=== PATIENT | male | born 1980 | race Caucasian/White ===

== ENCOUNTER 2020-12-31 07:52 | Observation (INO) ==
[2020-12-31] MEDS ORDERED: KETOROLAC TROMETHAMINE 15 MG/ML VIAL IV STA (08:18)
[2020-12-31] MEDS ORDERED: MoRPHine SULFATE 4 MG/ML 1 ML CARP\\VIAL IV STA ×2 (08:18→11:24)
[2020-12-31] MEDS ORDERED: ONDANSETRON INJ 2 MG/ML 2 ML VIAL IV STA (08:18)
--- NOTE | 2020-12-31 08:24 | Emergency Department Note ---
History of Present Illness General Chief complaint: Back Injury/Pain Stated complaint: PAIN IN BACK, HIP, KNEE Time Seen by Provider: 12/31/20 08:01 History of Present Illness Maximum Pain Intensity: 8 This is a 40-year-old male that presents to the emergency department via private vehicle with complaints of "pain in back, hip, knee". The patient states that for the past 6 months he has been experiencing pain from his "neck to toes". The patient denies any known trauma or injury. He notes negative work-up for RA/Lyme. He notes also some swelling and pain into his fingers. He also has some pain in the left mid back region. He does note that he had an MRI of the L-spine without contrast performed on 12/24. The patient denies any fevers, chills, nausea, vomiting, chest pain or shortness of breath. No lower extremity weakness, bowel or bladder incontinence, numbness or tingling in the genital region. Overall pain /10. Patient denies any headache. No vision changes. Home Medications Medication Instructions Recorded Confirmed Type gabapentin 300 mg capsule 300 mg PO QID cap 09/08/20 12/31/20 History ibuprofen 200 mg tablet (Advil) 1,000 mg PO BID PRN tab 09/08/20 12/31/20 History Allergies Allergy/AdvReac Type Severity Reaction Status Date / Time methadone AdvReac Intermediate PT STATES Verified 12/31/20 08:42 "IT MAKES ME VERY SICK" Past Med/Surg History Medical History Anemia Anxiety and depression Autoimmune thyroiditis Bipolar 1 disorder, depressed Chronic back pain Dyslexia Hearing loss Left Hyperthyroidism recent diagnosis; no treatment as of yet; upcoming appt 09/25 to address Low TSH level Osteoarthritis PTSD (post-traumatic stress disorder) Scoliosis Vitamin D deficiency Surgical History H/O bone graft LEFT HIP H/O eye surgery H/O oral surgery History of below knee amputation Left (r/t injury) History of colonoscopy Family History Mother Mental health disorder bipolar, border line schizophrenia, depression, anxiety Hypertension Grandmother (Maternal) Hypertension Grandfather (Maternal) Hypertension Other No family history of adverse response to anesthesia Denies family history of Ovarian cancer Prostate cancer Myocardial infarction Breast cancer Colorectal cancer Social History Smoking Status: Former smoker Tobacco Type: Smokeless Tobacco (Dip or Chew) Age Started Using Tobacco: 22; Second Hand Exposure: Yes (hx and at present); Hx Alcohol Use: Yes Alcohol type: beer Alcohol Intake Frequency: 2-4 x/Month Hx Substance Use: Yes Non-Prescribed Medications: Marijuana Last Used Substance Other:: yesterday Preferred Language: Occitan Communication Ability: Effective Visual Impairment: No Limitations Hearing Ability: Hard of Hearing 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 Beliefs That Will Affect Care: None marital status: Current Living Situation: Spouse current occupational status: employed How many Children do You have: 2 How many Children do You have Comment: 2 boys Feels Safe at Home: Yes Childhood Exposure to Second-Hand Smoke: Yes caffeine: Yes during the past year weight has: decreased > 10 lbs Dental Care, Regularly: No Physical Activity Frequency: Daily Seatbelt Use: always Sunscreen Use: Yes Assistive Devices: Prosthesis Review of Systems A total of 10 systems reviewed and were otherwise negative Physical Exam Vital Signs Vital Signs - 24 hr 12/31/20 07:57 12/31/20 08:36 12/31/20 09:30 Temperature 36.5 C Temperature Source Temporal Artery Scan Pulse Rate 91 H 85 Pulse Rate [Left Finger] 92 H Pulse Rate from SpO2 Sensor Pulse Rhythm Regular Regular Pulse Rhythm [Left Finger] Regular Pulse Strength Normal Pulse Strength [Left Finger] Normal Respiratory Rate 18 20 18 Respiratory Effort / Characteristics Non-Labored Spontaneous Non-Labored Spontaneous Respiratory Depth Normal Normal Respiratory Pattern Regular Regular Blood Pressure 121/80 Blood Pressure [Left Arm] 125/76 Blood Pressure Mean 93 Blood Pressure Mean [Left Arm] 92 Blood Pressure Position Sitting Blood Pressure Position [Left Arm] Sitting Pulse Oximetry 100 98 100 Oxygen Delivery Method Room Air Room Air Room Air Sepsis Recent Fever Within 48 Hours No Sepsis New/Unexplained Change in Mental Status No Sepsis Action Taken by Nursing No Action Required 12/31/20 11:08 12/31/20 11:30 12/31/20 12:00 Temperature Temperature Source Pulse Rate 79 83 80 Pulse Rate [Left Finger] Pulse Rate from SpO2 Sensor 79 79 79 Pulse Rhythm Pulse Rhythm [Left Finger] Pulse Strength Pulse Strength [Left Finger] Respiratory Rate 11 L 13 17 Respiratory Effort / Characteristics Respiratory Depth Respiratory Pattern Blood Pressure 120/85 107/70 105/72 Blood Pressure [Left Arm] Blood Pressure Mean 96 82 83 Blood Pressure Mean [Left Arm] Blood Pressure Position Blood Pressure Position [Left Arm] Pulse Oximetry 99 98 99 Oxygen Delivery Method Sepsis Recent Fever Within 48 Hours Sepsis New/Unexplained Change in Mental Status Sepsis Action Taken by Nursing 12/31/20 12:30 12/31/20 13:00 12/31/20 13:30 Temperature Temperature Source Pulse Rate 82 75 84 Pulse Rate [Left Finger] Pulse Rate from SpO2 Sensor 83 76 87 Pulse Rhythm Pulse Rhythm [Left Finger] Pulse Strength Pulse Strength [Left Finger] Respiratory Rate 18 16 16 Respiratory Effort / Characteristics Respiratory Depth Respiratory Pattern Blood Pressure 118/79 112/72 119/85 Blood Pressure [Left Arm] Blood Pressure Mean 92 85 96 Blood Pressure Mean [Left Arm] Blood Pressure Position Blood Pressure Position [Left Arm] Pulse Oximetry 99 96 98 Oxygen Delivery Method Sepsis Recent Fever Within 48 Hours Sepsis New/Unexplained Change in Mental Status Sepsis Action Taken by Nursing VITAL SIGNS - Vital signs and nursing notes were reviewed. Stable and afebrile. GENERAL -40-year-old male appearing his stated age who is in no acute distress. Communicates well with provider and answers questions appropriately. SKIN - Without rashes. No meningeal or petechial rash. Tattoos noted. HEAD - NC/AT. EYES - PERRL with EOMI bilaterally. Sclera anicteric. EARS - No deformities of external structures noted on gross examination bilaterally. No pain elicited with palpation of the tragus bilaterally. External auditory canals without discharge or otorrhea. Tympanic membranes pearly finn without retraction or bulging. No fluid or purulent material visualized behind the TM. Handle of malleus, umbo, cone of light, pars tensa/flaccid all easily visualized. NOSE - Midline and without cyanosis. No epistaxis or purulent drainage noted. Septum midline without deviation or septal hematoma noted. MOUTH/OROPHARYNX - Without perioral cyanosis. Buccal mucosa pink and moist and without leukoplakia. Tongue midline with equal elevation of palate bilaterally. No tonsillar hypertrophy, erythema, or exudates noted. Good dentition noted. NECK - Neck with FROM. No nuchal rigidity. LUNGS - Chest wall symmetric without accessory muscle use, intercostals retractions, or central cyanosis. Normal vesicular breath sounds CTA B/L. No wheezes, rales, or rhonchi appreciated. CARDIAC - RRR with S1/S2. No murmur, rubs, or gallops appreciated. ABDOMEN - Abdominal contour normal without pulsations or visible masses. BS normoactive all four quadrants. No tenderness, palpable masses, hepatosplenomegaly, or ascites noted. EXTREMITIES - No clubbing or peripheral cyanosis. No pretibial edema present. LLE prosthetic noted. Overall strength symmetric and within normal limits in the extremities. Biceps reflex within normal limits bilaterally. NEUROLOGIC - Cranial nerves II through XII grossly intact. PSYCH - A&Ox3 and cooperates fully with examiner. Pt is very pleasant and interacts well with examiner. Course Administered Medications Gabapentin (Gabapentin 300 Mg Cap) 300 mg PO QID [facility] Stop: 01/30/21 16:59 Last Admin: 12/31/20 16:07 Dose: 300 mg Documented by: [id number] Oxycodone HCl (Oxycodone Hcl Ir 5 Mg Tab (Immediate Release)) 5 mg PO Q4H PRN PRN Reason: Pain Stop: 01/14/21 15:11 Last Admin: 12/31/20 15:34 Dose: 5 mg Documented by: [id number] Prednisone (Prednisone 20 Mg Tab) 40 mg PO [facility] Stop: 01/30/21 15:05 Last Admin: 12/31/20 16:07 Dose: 40 mg Documented by: [id number] Vitamin D (Cholecalciferol 1,000 Units 25 Mcg Tab) 1,000 units PO [facility] Stop: 01/30/21 15:05 Last Admin: 12/31/20 16:07 Dose: 1,000 units Documented by: [id number] Discontinued Medications Gadobutrol (Gadobutrol 65ml Vial) 5.5 ml IV ONCE ONE Stop: 12/31/20 10:38 Last Admin: 12/31/20 10:37 Dose: 5.5 ml Documented by: [id number] Hydromorphone HCl (Hydromorphone Inj 0.5 Mg/0.5 Ml Syr) 0.5 mg IV NOW STA Stop: 12/31/20 12:10 Last Admin: 12/31/20 12:16 Dose: 0.5 mg Documented by: [id number] Ketorolac Tromethamine (Ketorolac Tromethamine 15 Mg/Ml Vial) 15 mg IV NOW STA Stop: 12/31/20 08:19 Last Admin: 12/31/20 08:34 Dose: 15 mg Documented by: [id number] Morphine Sulfate (Morphine Sulfate 4 Mg/Ml 1 Ml Carp\\Vial) 4 mg IV NOW STA Stop: 12/31/20 08:19 Last Admin: 12/31/20 08:35 Dose: 4 mg Documented by: [id number] Morphine Sulfate (Morphine Sulfate 4 Mg/Ml 1 Ml Carp\\Vial) 4 mg IV NOW STA Stop: 12/31/20 11:25 Last Admin: 12/31/20 11:31 Dose: 4 mg Documented by: [id number] Ondansetron HCl (Ondansetron Inj 2 Mg/Ml 2 Ml Vial) 4 mg IV NOW STA Stop: 12/31/20 08:19 Last Admin: 12/31/20 08:34 Dose: 4 mg Documented by: [id number] Medical Decision Making Laboratory Data Result diagrams: 12/31/20 08:27 12/31/20 08:27 Lab Results 12/31/20 12/31/20 12/31/20 Range/Units 08:27 08:27 08:27 WBC 9.80 (4.8-10.8) K/uL RBC 3.95 L (4.7-6.1) M/uL Hgb 10.2 L (14.0-18.0) g/dL Hct 32.2 L (42-52) % MCV 81.5 (80-100) fL MCH 25.8 (25-34) pg MCHC 31.7 L (32-36) g/dL RDW Std Deviation 44.6 (36.4-46.3) fL RDW Coeff of Salome 15.0 H (11.5-14.5) % Plt Count 550 H (130-400) K/uL MPV 8.2 (7.4-10.4) fL Immature Gran % (Auto) 0.2 % Neut % (Auto) 80.0 % Lymph % (Auto) 11.8 % Stearns % (Auto) 7.3 % Eos % (Auto) 0.6 % Baso % (Auto) 0.1 % Neut # (Auto) 7.83 H (1.4-6.5) K/uL Lymph # (Auto) 1.16 L (1.2-3.4) K/uL Stearns # (Auto) 0.72 H (0.11-0.59) K/uL Eos # (Auto) 0.06 (0-0.5) K/uL Baso # (Auto) 0.01 (0-0.2) K/uL Immature Gran # (Auto) 0.02 (0.00-0.02) K/uL ESR (0-15) mm/hr Sodium 137 (136-145) mmol/L Potassium 3.8 (3.5-5.1) mmol/L Chloride 106 (98-107) mmol/L Carbon Dioxide 25 (21-32) mmol/L Anion Gap 6.0 (3-11) BUN 11 (7-18) mg/dl Creatinine 0.57 L (0.6-1.4) mg/dl Est Cr Clr Drug Dosing 139.2 ml/min Est GFR ( Amer) > 150.0 ml/min Est GFR (Non-Af Amer) 130.3 ml/min BUN/Creatinine Ratio 19.7 (10-20) Glucose 100 H (70-99) mg/dl Calcium 9.6 (8.5-10.1) mg/dl Magnesium 1.7 L (1.8-2.4) mg/dl Total Bilirubin 0.4 (0.2-1) mg/dl AST 14 L (15-37) U/L ALT 19 (12-78) U/L Alkaline Phosphatase 106 (45-117) U/L Total Creatine Kinase (39-308) U/L Troponin I < 0.015 (0-0.045) ng/ml C-Reactive Protein (0-0.29) mg/dl Total Protein 9.4 H (6.4-8.2) gm/dl Albumin 2.6 L (3.4-5.0) gm/dl Globulin 6.8 H (2.5-4.0) gm/dl Albumin/Globulin Ratio 0.4 L (0.9-2) Lipase 42 L (73-393) U/L Procalcitonin < 0.05 (0-0.5) ng/ml TSH < 0.005 L (0.300-4.500) uIu/ml Free T4 1.67 H (0.8-1.6) ng/dl Random Cortisol mcg/dl Urine Color Urine Appearance (Clear) Urine pH (4.5-7.5) Ur Specific [place] (1.000-1.030) Urine Protein (Negative) Urine Glucose (UA) (Negative) Urine Ketones (Negative) Urine Blood (Negative) Urine Nitrite (Negative) Urine Bilirubin (Negative) Urine Urobilinogen (Negative) Ur Leukocyte Esterase (Negative) Urine WBC (Auto) (0-5) /hpf Urine RBC (Auto) (0-4) /hpf U Hyaline Cast (Auto) (0-5) /lpf U Epithel Cells (Auto) (0-5) /lpf Urine Bacteria (Auto) (Negative) COVID-19 Eval Order SARS-CoV-2 (PCR) (Negative) 12/31/20 12/31/20 12/31/20 Range/Units 08:27 08:27 08:27 WBC (4.8-10.8) K/uL RBC (4.7-6.1) M/uL Hgb (14.0-18.0) g/dL Hct (42-52) % MCV (80-100) fL MCH (25-34) pg MCHC (32-36) g/dL RDW Std Deviation (36.4-46.3) fL RDW Coeff of Salome (11.5-14.5) % Plt Count (130-400) K/uL MPV (7.4-10.4) fL Immature Gran % (Auto) % Neut % (Auto) % Lymph % (Auto) % Stearns % (Auto) % Eos % (Auto) % Baso % (Auto) % Neut # (Auto) (1.4-6.5) K/uL Lymph # (Auto) (1.2-3.4) K/uL Stearns # (Auto) (0.11-0.59) K/uL Eos # (Auto) (0-0.5) K/uL Baso # (Auto) (0-0.2) K/uL Immature Gran # (Auto) (0.00-0.02) K/uL ESR 127 H (0-15) mm/hr Sodium (136-145) mmol/L Potassium (3.5-5.1) mmol/L Chloride (98-107) mmol/L Carbon Dioxide (21-32) mmol/L Anion Gap (3-11) BUN (7-18) mg/dl Creatinine (0.6-1.4) mg/dl Est Cr Clr Drug Dosing ml/min Est GFR ( Amer) ml/min Est GFR (Non-Af Amer) ml/min BUN/Creatinine Ratio (10-20) Glucose (70-99) mg/dl Calcium (8.5-10.1) mg/dl Magnesium (1.8-2.4) mg/dl Total Bilirubin (0.2-1) mg/dl AST (15-37) U/L ALT (12-78) U/L Alkaline Phosphatase (45-117) U/L Total Creatine Kinase 33 L (39-308) U/L Troponin I (0-0.045) ng/ml C-Reactive Protein 10.90 H (0-0.29) mg/dl Total Protein (6.4-8.2) gm/dl Albumin (3.4-5.0) gm/dl Globulin (2.5-4.0) gm/dl Albumin/Globulin Ratio (0.9-2) Lipase (73-393) U/L Procalcitonin (0-0.5) ng/ml TSH (0.300-4.500) uIu/ml Free T4 (0.8-1.6) ng/dl Random Cortisol 16.10 mcg/dl Urine Color Urine Appearance (Clear) Urine pH (4.5-7.5) Ur Specific [place] (1.000-1.030) Urine Protein (Negative) Urine Glucose (UA) (Negative) Urine Ketones (Negative) Urine Blood (Negative) Urine Nitrite (Negative) Urine Bilirubin (Negative) Urine Urobilinogen (Negative) Ur Leukocyte Esterase (Negative) Urine WBC (Auto) (0-5) /hpf Urine RBC (Auto) (0-4) /hpf U Hyaline Cast (Auto) (0-5) /lpf U Epithel Cells (Auto) (0-5) /lpf Urine Bacteria (Auto) (Negative) COVID-19 Eval Order SARS-CoV-2 (PCR) (Negative) 12/31/20 12/31/20 12/31/20 Range/Units 09:32 12:31 12:31 WBC (4.8-10.8) K/uL RBC (4.7-6.1) M/uL Hgb (14.0-18.0) g/dL Hct (42-52) % MCV (80-100) fL MCH (25-34) pg MCHC (32-36) g/dL RDW Std Deviation (36.4-46.3) fL RDW Coeff of Salome (11.5-14.5) % Plt Count (130-400) K/uL MPV (7.4-10.4) fL Immature Gran % (Auto) % Neut % (Auto) % Lymph % (Auto) % Stearns % (Auto) % Eos % (Auto) % Baso % (Auto) % Neut # (Auto) (1.4-6.5) K/uL Lymph # (Auto) (1.2-3.4) K/uL [place] # (Auto) (0.11-0.59) K/uL Eos # (Auto) (0-0.5) K/uL Baso # (Auto) (0-0.2) K/uL Immature Gran # (Auto) (0.00-0.02) K/uL ESR (0-15) mm/hr Sodium (136-145) mmol/L Potassium (3.5-5.1) mmol/L Chloride (98-107) mmol/L Carbon Dioxide (21-32) mmol/L Anion Gap (3-11) BUN (7-18) mg/dl Creatinine (0.6-1.4) mg/dl Est Cr Clr Drug Dosing ml/min Est GFR ( Amer) ml/min Est GFR (Non-Af Amer) ml/min BUN/Creatinine Ratio (10-20) Glucose (70-99) mg/dl Calcium (8.5-10.1) mg/dl Magnesium (1.8-2.4) mg/dl Total Bilirubin (0.2-1) mg/dl AST (15-37) U/L ALT (12-78) U/L Alkaline Phosphatase (45-117) U/L Total Creatine Kinase (39-308) U/L Troponin I (0-0.045) ng/ml C-Reactive Protein (0-0.29) mg/dl Total Protein (6.4-8.2) gm/dl Albumin (3.4-5.0) gm/dl Globulin (2.5-4.0) gm/dl Albumin/Globulin Ratio (0.9-2) Lipase (73-393) U/L Procalcitonin (0-0.5) ng/ml TSH (0.300-4.500) uIu/ml Free T4 (0.8-1.6) ng/dl Random Cortisol mcg/dl Urine Color Yellow Urine Appearance Cloudy A (Clear) Urine pH 7.0 (4.5-7.5) Ur Specific [place] 1.018 (1.000-1.030) Urine Protein Negative (Negative) Urine Glucose (UA) Negative (Negative) Urine Ketones Negative (Negative) Urine Blood Negative (Negative) Urine Nitrite Negative (Negative) Urine Bilirubin Negative (Negative) Urine Urobilinogen Negative (Negative) Ur Leukocyte Esterase Negative (Negative) Urine WBC (Auto) 1-5 (0-5) /hpf Urine RBC (Auto) 0-4 (0-4) /hpf U Hyaline Cast (Auto) 1-5 (0-5) /lpf U Epithel Cells (Auto) 5-10 H (0-5) /lpf Urine Bacteria (Auto) Negative (Negative) COVID-19 Eval Order Covid19 at [facility] [place] SARS-CoV-2 (PCR) NEGATIVE (Negative) Imaging Data Radiologist's Impression: Lumbar Spine MRI 12/31/20 08:23 MRI OF THE LUMBAR SPINE WITH AND WITHOUT CONTRAST CLINICAL HISTORY: Abnormal L spine MRI, back pain COMPARISON STUDY: Lumbar spine MRI December 24, 2020. TECHNIQUE: Utilizing a 1.5 Angela magnet and dedicated coil, multiplanar, multiecho imaging of the lumbar spine was performed before and after uneventful IV administration of 5.5 mL of Gadavist. FINDINGS: For purposes of numbering on this exam, the L5-S1 disc space is assigned to axial image [id number]. Alignment of the lumbar spine is anatomic. Vertebral body heights are maintained. Disc spaces are preserved. The conus terminates at the lower L1 level. Note is made of an 8.1 x 2.3 x 0.9 cm CSF signal intensity epidural abnormality within the left posterior lateral aspect of the central canal which extends from T11 to L1. This is unchanged since MRI of December 24, 2020. This is new since earlier MRI of September 08, 2006. This contains thin septations with no enhancement. This has mild to moderate mass effect upon the thecal sac with resultant narrowing of the left T11-T12 and L1-L2 neural foramen. No additional intracanalicular abnormalities are present. Otherwise, t he central canal is patent. There are no disc herniations. There is no lumbar spine fracture. IMPRESSION: 8.1 x 2.3 x 0.9 cm CSF signal intensity epidural abnormality within the left posterolateral aspect of the central canal extending from T11 through L1. This is unchanged since MRI of December 24, 2020 but new since MRI of September 08, 2006. No associated enhancement. This contains multiple thin septations. This has mild to moderate mass effect upon the thecal sac and results in narrowing of the left T12-L1 and L1-L2 neural foramen. The MRI appearance is nonspecific. Differential considerations include an arachnoid cyst or old posttraumatic pseudomeningocele. Otherwise, unremarkable MRI of the lumbar spine. ACT 112: Negative or not required by law. Electronically signed by: Jorge Fisher M.D. 12/31/2020 11:45 AM Thoracic Spine MRI 12/31/20 08:23 MRI OF THE THORACIC SPINE WITH AND WITHOUT CONTRAST CLINICAL HISTORY: Abnormal L spine MRI, back pain COMPARISON: MRI December 24, 2020. TECHNIQUE: Utilizing a 1.5 Angela magnet and dedicated coil, multiplanar, multiecho imaging of the thoracic spine was performed before and after the intravenous administration of 5.5 cc. FINDINGS: This exam is mildly compromised by motion artifact. Alignment of the thoracic spine is anatomic. Vertebral body heights are maintained. There is no thoracic spine fracture. No suspicious marrow replacement. Paravertebral soft tissues are unremarkable. Thoracic cord signal is suboptimally assessed on this exam but appears to be within normal limits. Note is made of an 8.1 x 2.3 x 0.9 cm CSF signal intensity epidural abnormality within the left posterolateral aspect of the canal extending from T11 through L1 which is unchanged since MRI of December 24, 2020. This is new since MRI of September 08, 2006. This has mild to moderate mass effect upon the thecal sac and results in narrowing of the left T12-L1 and L1-L2 neural foramen. This is no associated enhancement. This contains multiple thin septations. No additional intracanalicular abnormalities are present. No disc herniation is present. IMPRESSION: 1. 8.1 x 2.3 x 0.9 cm CSF signal intensity epidural abnormality within the left posterolateral aspect of the central canal extending from T11 through L1. This is unchanged since MRI of December 24, 2020 but new since MRI of September 08, 2006. No associated enhancement. This contains multiple thin septations. This has mild to moderate mass effect upon the thecal sac and results in narrowing of the left T12-L1 and L1-L2 neural foramen. The MRI appearance is nonspecific. Differential considerations include an arachnoid cyst or old posttraumatic pseudomeningocele. 2. Exam mildly compromised by motion artifact. No definite thoracic cord signal abnormality. 3. No disc herniations. 4. No thoracic spine fracture. ACT 112: Negative or not required by law. Electronically signed by: Jorge Fisher M.D. 12/31/2020 11:39 AM MDM Narrative Patient was seen and evaluated as above in room A11. Review was performed of nursing notes and vital signs. I did review pertinent previous visits and patient history. After obtaining a thorough history and physical examination the above work up was performed. Patient presents to us today with pain from the base of his neck to the legs with also joint discomfort. He is nontoxic on examination. Vital signs stable. He does note recent outpatient MRI of the L- spine as well as Lyme testing. Options of care were discussed with the patient. Patient does appear to be having worsening symptoms that have been ongoing. Vital signs stable. He is nontoxic on examination. Biceps reflex intact. No neurovascular deficit. I did review the patient's outpatient MRI. There is an abnormal finding noted within the CSF of the inferior T-spine/superior L-spine. I discussed this with the radiologist. We will proceed here today noting his worsening symptoms with contrasted MRI of the T and L-spine. Results as above. The finding is unchanged compared to 24 December. The patient has required several rounds of IV analgesics while here in the emergency department. His pain has persisted. For this reason it is felt that further evaluation and management in the inpatient setting is warranted. Please refer to further documentation regarding his stay. Laboratory studies reveal no leukocytosis. Anemia noted with hemoglobin of 10.2. The patient does have a normal renal panel. Magnesium slightly low at 1.7. There is essentially an undetectable TSH that is less than 0.005. Free T4 1.67. The urine does not suggest infection. ESR and CRP were added on by the admission team and were found to be significantly elevated at 127 and 10.9 respectively. While in the department, I personally reevaluated the patient several times. Case discussed with attending physician. GCS: 15 In the evaluation and treatment of this patient the following differential diagnoses were entertained: Meningitis, encephalitis, infectious process, abscess, mass, thyroiditis, autoimmune condition, Lyme, anaplasmosis, among others. Impression & Plan Intractable back pain, Abnormal MRI, spine, Hyperthyroidism, Thrombocytosis, Anemia Discharge Plan Visit Data Chief Complaint: Back Injury/Pain Stated Complaint: PAIN IN BACK, HIP, KNEE ED Provider: Markus Wright ED Midlevel Provider: Skip Gramajo Discharge Problem: Intractable back pain, Abnormal MRI, spine, Hyperthyroidism, Thrombocytosis, Anemia Patient Disposition: Admitted As Inpatient Discharge Instructions Interventions: ED Discharge Assessment Last Done: 12/31/20 14:28
[2020-12-31 08:37] LABS: Basophils # (auto) 0.01 K/uL (0-0.2); Basophils % (auto) 0.1 %; Eosinophils # (auto) 0.06 K/uL (0-0.5); Eosinophils % (auto) 0.6 %; Hematocrit (blood only) 32.2 % (42-52); Hemoglobin 10.2 g/dL (14.0-18.0); Immature Granulocytes # (auto) 0.02 K/uL (0.00-0.02); Immature Granulocytes % (auto) 0.2 %; Lymphocytes # (auto) 1.16 K/uL (1.2-3.4); Lymphocytes % (auto) 11.8 %; Mean Corpuscular Hemoglobin 25.8 pg (25-34); Mean Corpuscular Hgb Conc 31.7 g/dL (32-36); Mean Corpuscular Volume 81.5 fL (80-100); Mean Platelet Volume 8.2 fL (7.4-10.4); Monocytes # (auto) 0.72 K/uL (0.11-0.59); Monocytes % (auto) 7.3 %; Neutrophils # (auto) 7.83 K/uL (1.4-6.5); Platelet Count 550 K/uL (130-400); RDW Standard Deviation 44.6 fL (36.4-46.3); Red Blood Count 3.95 M/uL (4.7-6.1)
[2020-12-31 08:56] LABS: Alanine Aminotransferase 19 U/L (12-78); Albumin Level 2.6 gm/dl (3.4-5.0); Aspartate Aminotransferase 14 U/L (15-37); BUN Creatinine Ratio 19.7 (10-20); Blood Urea Nitrogen 11 mg/dl (7-18); Calcium 9.6 mg/dl (8.5-10.1); Carbon Dioxide 25 mmol/L (21-32); Chloride 106 mmol/L (98-107); Creatinine Clr Calc Pharmacy 139.2 ml/min; Est GFR (African American) > 150.0 ml/min; Est GFR (Non-African American) 130.3 ml/min; Glucose 100 mg/dl (70-99); Lipase 42 U/L (73-393); Magnesium 1.7 mg/dl (1.8-2.4); Potassium 3.8 mmol/L (3.5-5.1); Sodium 137 mmol/L (136-145)
[2020-12-31 09:10] LABS: Albumin Globulin Ratio 0.4 (0.9-2); Alkaline Phosphatase 106 U/L (45-117); Bilirubin,Total 0.4 mg/dl (0.2-1); Globulin 6.8 gm/dl (2.5-4.0); Total Protein 9.4 gm/dl (6.4-8.2); Troponin I < 0.015 ng/ml (0-0.045)
[2020-12-31 09:34] LABS: Thyroid Stimulating Hormone < 0.005 uIu/ml (0.300-4.500)
[2020-12-31 09:42] LABS: Appearance Urine Cloudy (Clear); Bacteria Urine Automated Negative (Negative); Bilirubin Urine Negative (Negative); Blood Urine Negative (Negative); Color Urine Yellow; Glucose Urine UA Negative (Negative); Ketones Urine Negative (Negative); Leukocyte Esterase Urine Negative (Negative); Nitrite Urine Negative (Negative); Protein Urine Negative (Negative); RBC Urine Automated 0-4 /hpf (0-4); Specific Gravity Urine 1.018 (1.000-1.030); Urobilinogen Urine Negative (Negative)
[2020-12-31 10:02] LABS: T4 Free Thyroxine 1.67 ng/dl (0.8-1.6)
[2020-12-31] MEDS ORDERED: GADOBUTROL 65ML VIAL IV ONE (10:37)
--- NOTE | 2020-12-31 11:40 | Magnetic Resonance Report ---
MRI OF THE THORACIC SPINE WITH AND WITHOUT CONTRAST CLINICAL HISTORY: Abnormal L spine MRI, back pain COMPARISON: MRI December 24, 2020. TECHNIQUE: Utilizing a 1.5 Angela magnet and dedicated coil, multiplanar, multiecho imaging of the th oracic spine was performed before and after the intravenous administration of 5.5 cc. FINDINGS: This exam is mildly compromised by motion artifact. Alignment of the thoracic spine is seng omic. Vertebral body heights are maintained. There is no thoracic spine fracture. No suspicious marro w replacement. Paravertebral soft tissues are unremarkable. Thoracic cord signal is suboptimally asse ssed on this exam but appears to be within normal limits. Note is made of an 8.1 x 2.3 x 0.9 cm CSF s ignal intensity epidural abnormality within the left posterolateral aspect of the canal extending fro m T11 through L1 which is unchanged since MRI of December 24, 2020. This is new since MRI of September 08. This has mild to moderate mass effect upon the thecal sac and results in narrowing of the left T1 2-L1 and L1-L2 neural foramen. This is no associated enhancement. This contains multiple thin septati ons. No additional intracanalicular abnormalities are present. No disc herniation is present. IMPRESSION: 1. 8.1 x 2.3 x 0.9 cm CSF signal intensity epidural abnormality within the left posterolateral aspect of the central canal extending from T11 through L1. This is unchanged since MRI of December 24, 2020 b ut new since MRI of September 08, 2006. No associated enhancement. This contains multiple thin septations. This has mild to moderate mass effect upon the thecal sac and results in narrowing of the left T12-L1 and L1-L2 neural foramen. The MRI appearance is nonspecific. Differential considerations include an arachnoid cyst or old posttraumatic pseudomeningocele. 2. Exam mildly compromised by motion artifact. No definite thoracic cord signal abnormality. 3. No disc herniations. 4. No thoracic spine fracture. ACT 112: Negative or not required by law. Electronically signed by: Jorge Fisher M.D. 12/31/2020 11:39 AM
--- NOTE | 2020-12-31 11:46 | Magnetic Resonance Report ---
MRI OF THE LUMBAR SPINE WITH AND WITHOUT CONTRAST CLINICAL HISTORY: Abnormal L spine MRI, back pain COMPARISON STUDY: Lumbar spine MRI December 24, 2020. TECHNIQUE: Utilizing a 1.5 Angela magnet and dedicated coil, multiplanar, multiecho imaging of the cristal mbar spine was performed before and after uneventful IV administration of 5.5 mL of Gadavist. FINDINGS: For purposes of numbering on this exam, the L5-S1 disc space is assigned to axial image 4853. Alignme nt of the lumbar spine is anatomic. Vertebral body heights are maintained. Disc spaces are preserved. The conus terminates at the lower L1 level. Note is made of an 8.1 x 2.3 x 0.9 cm CSF signal intensi ty epidural abnormality within the left posterior lateral aspect of the central canal which extends f rom T11 to L1. This is unchanged since MRI of December 24, 2020. This is new since earlier MRI of August 292006. This contains thin septations with no enhancement. This has mild to moderate mass effect upo n the thecal sac with resultant narrowing of the left T11-T12 and L1-L2 neural foramen. No additional intracanalicular abnormalities are present. Otherwise, the central canal is patent. There are no dis c herniations. There is no lumbar spine fracture. IMPRESSION: 8.1 x 2.3 x 0.9 cm CSF signal intensity epidural abnormality within the left posterolateral aspect of the central canal extending from T11 through L1. This is unchanged since MRI of December 24, 2020 but new since MRI of September 08, 2006. No associated enhancement. This contains multiple thin septations. Thi s has mild to moderate mass effect upon the thecal sac and results in narrowing of the left T12-L1 an d L1-L2 neural foramen. The MRI appearance is nonspecific. Differential considerations include an sylvie chnoid cyst or old posttraumatic pseudomeningocele. Otherwise, unremarkable MRI of the lumbar spine. ACT 112: Negative or not required by law. Electronically signed by: Jorge Fisher M.D. 12/31/2020 11:45 AM
[2020-12-31] MEDS ORDERED: HYDROmorphone INJ 0.5 MG/0.5 ML SYR IV STA (12:09)
--- NOTE | 2020-12-31 13:07 | History & Physical Report ---
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 Do not suspect cervical spine pathology given exam above. Discussed with Dr Shah - recommended treatment with 15mg PO daily but given degree of pain will start slightly higher than this to assess response overnight Discussed with Dr Donnelly - needs to have radioactive uptake scan but can be set up for this next week as outpatient, US thyroid not required as inpatient. Feels this is concurrent inflammatory arthritis rather than the autoimmune thyroiditis itself. MAMADOU, rheumatoid factor negative. CRP, ESR raised. Do not suspect Tarlov cyst in his back is causing him any symptoms but ok to follow up with ortho spine as outpatient Alternative concurrent disease that comes with Grave's is myasthenia although main symptom is pain rather than weakness and no fatigability or eye symptoms. Will send off antibodies with AM labs. Start prednisone 40mg PO daily and monitor response, switch to 15mg PO daily on discharge and follow up with rheumatology. Physical therapy (2) Autoimmune thyroiditis: Plan: Suspect this is Grave's and related to his inflammatory polyarthritis as above TSI antibody as recommended by endocrinology. Follow up with endocrinology as outpatient (3) Vitamin D deficiency: Plan: Start supplementation (4) Anemia: Plan: Stable Iron sats 15% in August, ferritin elevated, repeat transferrin sats with AM labs Take B12, folate and LDH (5) Elevated ferritin: Plan: Suspect related to inflammatory autoimmune disease as above (6) Elevated blood protein: Plan: Consider SPEP as outpatient if does not resolve with treating thyroiditis as above (7) Chronic back pain: Plan: VTE Prophylaxis - low risk Disposition - observation status to med/surg Admission and Anticipated Discharge Date Admission Date: December 31, 2020 History of Present Illness Chief Complaint: Generalized joint aches Primary Care Provider: Brittny Singer DO Sanjeev Lugo is a 40 year old male who presents to the ER with generalized joint pains. He reports having symptoms for the past 8 months but progressively getting much worse to the point he feels he is in too much pain to manage at home, severity currently 8/10 after morphine and Toradol. Initial pain was in his jaw then spread to his back. More recently in his ring finger joints but now spread to joints of both hands and shoulders. He is unable to lift his arms above his head due to pain in his shoulders. He feels this is all in his joints than his muscles. Joints also feel swollen. He has not seen a comber setter. This has previously been worked up with negative MAMADOU screen, RF and lupus antibodies. Inflammatory markers ordered but not taken. 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 No family history of autoimmune conditions. 2-3 months ago had prednisone for a week and helped with his castrejon.nds With regards to his hyperthyroidism. This is currently being worked up by endocrinology. He has not had the US thyroid ordered by endocrinology - reports not yet scheduled. Anti-TPO positive. Low TSH and high free T4. He notes having a large painful thyroid approximately 4 months ago which caused some dysphagia but has improved since then. Of note previous ER note reports prior history of drug abuse. In the ER repeat lumbar spine MRI and thoracic spine MRI demonstrated on previous scan. He was referred to medicine for admission and ongoing management due to intractable pain. Allergies Allergy/AdvReac Type Severity Reaction Status Date / Time methadone AdvReac Intermediate PT STATES Verified 12/31/20 08:42 "IT MAKES ME VERY SICK" Home Medications Medication Instructions Recorded Confirmed Type gabapentin 300 mg capsule 300 mg PO QID cap 09/08/20 12/31/20 History ibuprofen 200 mg tablet (Advil) 1,000 mg PO BID PRN tab 09/08/20 12/31/20 History Past Med/Surg History Medical History Anemia Anxiety and depression Autoimmune thyroiditis Bipolar 1 disorder, depressed Chronic back pain Dyslexia Hearing loss Left Hyperthyroidism recent diagnosis; no treatment as of yet; upcoming appt 09/25 to address Low TSH level Osteoarthritis PTSD (post-traumatic stress disorder) Scoliosis Vitamin D deficiency Surgical History H/O bone graft LEFT HIP H/O eye surgery H/O oral surgery History of below knee amputation Left (r/t injury) History of colonoscopy Family History Mother Mental health disorder bipolar, border line schizophrenia, depression, anxiety Hypertension Grandmother (Maternal) Hypertension Grandfather (Maternal) Hypertension Other No family history of adverse response to anesthesia Denies family history of Ovarian cancer Prostate cancer Myocardial infarction Breast cancer Colorectal cancer Social History Smoking Status: Former smoker Tobacco Type: Smokeless Tobacco (Dip or Chew) Age Started Using Tobacco: 22; Smoking End Date: Last smoked 6 months ago.; Second Hand Exposure: Yes (.); Do You Dip or Chew Tobacco: Yes; Tobacco Cessation Education Requested by Patient: No Hx Alcohol Use: Yes Alcohol type: beer Alcohol Intake Frequency: 2-4 x/Month Hx Substance Use: No Preferred Language: Burmese Communication Ability: Effective Visual Impairment: No Limitations Hearing Ability: Hard of Hearing Foil Spinner Required: No Beliefs That Will Affect Care: None marital status: Current Living Situation: Spouse current occupational status: employed How many Children do You have: 2 How many Children do You have Comment: 2 boys Other Information That Helps Us Care for You: No Feels Safe at Home: Yes Safety Concerns: Feels Safe At This Time Childhood Exposure to Second-Hand Smoke: Yes caffeine: Yes during the past year weight has: decreased > 10 lbs Dental Care, Regularly: No Physical Activity Frequency: Daily Seatbelt Use: always Sunscreen Use: Yes Assistive Devices: Prosthesis Physical Exam Constitutional: WD/WN, vitals as above Eyes: PERRL, conjunctivae normal, anicteric sclerae Respiratory: normal respiratory effort, lungs clear to auscultation Cardiovascular: RRR, no murmur, no edema Gastrointestinal (Abdomen): normal bowel sounds, soft, nontender, no hepatosplenomegaly Musculoskeletal: Spine: + limited thoraco-lumbar ROM, + cervical spinal tenderness, + thoracic spinal tenderness, + lumbar spinal tenderness and + paraspinal tenderness; no cervical muscular tenderness Left below knee amputation. Painful swollen MCP joints of right and left hands, painful shoulder joints b/l on palpation, painful left knee joint on palpation. No pain over muscles. Skin: no rashes, warm and dry Neurologic: moves all extremities, + focal motor deficit (unable to list arms above head b/l) and awake; not confused Psychiatric: A+Ox3, euthymic affect Results & Data Results & Data ([facility]) Vital Signs (Past 12 Hours) Vital Signs Temp Pulse Pulse Resp BP BP Pulse Ox 12/31/20 12:30 82 18 118/79 99 12/31/20 12:00 80 17 105/72 99 12/31/20 11:30 83 13 107/70 98 12/31/20 11:08 79 11 L 120/85 99 12/31/20 09:30 92 H 18 125/76 100 12/31/20 08:36 85 20 98 12/31/20 07:57 36.5 C 91 H 18 121/80 100 Diagnostic Findings MRI OF THE LUMBAR SPINE WITH AND WITHOUT CONTRAST FINDINGS: For purposes of numbering on this exam, the L5-S1 disc space is assigned to axial image 4853. Alignment of the lumbar spine is anatomic. Vertebral body heights are maintained. Disc spaces are preserved. The conus terminates at the lower L1 level. Note is made of an 8.1 x 2.3 x 0.9 cm CSF signal intensity epidural abnormality within the left posterior lateral aspect of the central canal which extends from T11 to L1. This is unchanged since MRI of December 24, 2020. This is new since earlier MRI of September 08, 2006. This contains thin septations with no enhancement. This has mild to moderate mass effect upon the thecal sac with resultant narrowing of the left T11-T12 and L1-L2 neural foramen. No additional intracanalicular abnormalities are present. Otherwise, the central canal is patent. There are no disc herniations. There is no lumbar spine fracture. IMPRESSION: 8.1 x 2.3 x 0.9 cm CSF signal intensity epidural abnormality within the left posterolateral aspect of the central canal extending from T11 through L1. This is unchanged since MRI of December 24, 2020 but new since MRI of September 08, 2006. No associated enhancement. This contains multiple thin septations. This has mild to moderate mass effect upon the thecal sac and results in narrowing of the left T12-L1 and L1-L2 neural foramen. The MRI appearance is nonspecific. Differential considerations include an arachnoid cyst or old posttraumatic pseudomeningocele. Otherwise, unremarkable MRI of the lumbar spine. MRI OF THE THORACIC SPINE WITH AND WITHOUT CONTRAST FINDINGS: This exam is mildly compromised by motion artifact. Alignment of the thoracic spine is anatomic. Vertebral body heights are maintained. There is no thoracic spine fracture. No suspicious marrow replacement. Paravertebral soft tissues are unremarkable. Thoracic cord signal is suboptimally assessed on this exam but appears to be within normal limits. Note is made of an 8.1 x 2.3 x 0.9 cm CSF signal intensity epidural abnormality within the left posterolateral aspect of the canal extending from T11 through L1 which is unchanged since MRI of December 24, 2020. This is new since MRI of September 08, 2006. This has mild to moderate mass effect upon the thecal sac and results in narrowing of the left T12-L1 and L1-L2 neural foramen. This is no associated enhancement. This contains multiple thin septations. No additional intracanalicular abnormalities are present. No disc herniation is present. IMPRESSION: 1. 8.1 x 2.3 x 0.9 cm CSF signal intensity epidural abnormality within the left posterolateral aspect of the central canal extending from T11 through L1. This is unchanged since MRI of December 24, 2020 but new since MRI of September 08, 2006. No associated enhancement. This contains multiple thin septations. This has mild to moderate mass effect upon the thecal sac and results in narrowing of the left T12-L1 and L1-L2 neural foramen. The MRI appearance is nonspecific. Differential considerations include an arachnoid cyst or old posttraumatic pseudomeningocele. 2. Exam mildly compromised by motion artifact. No definite thoracic cord signal abnormality. 3. No disc herniations. 4. No thoracic spine fracture. Medications Administered ER Medications Given: Toradol 15mg IV Morphine 4mg IV x2 Ondansetron 4mg IB Dilaudid 0.5mg IV Code Status & VTE Plan Code Status Full VTE Prophylaxis Plan VTE Prophylaxis will be ordered: No Reason for no VTE drug order: Treatment not indicated Reason for no VTE mechanical prophylaxis: Treatment not indicated PG Care Time/CCT Total # of Minutes Spent Total Time Spent with Patient: Total time spent is greater than 50% in coordination of care (as documented) at patient's floor/unit and/or counseling patient: Coding Level of Care Code INT OBSERVATION CARE 70M LVL 3 Diagnoses Autoimmune thyroiditis E06.3 Vitamin D deficiency E55.9 Anemia D64.9 Elevated ferritin R79.89 Elevated blood protein E88.09 Chronic back pain M54.9; G89.29 Inflammatory polyarthropathy M06.4
[2020-12-31] MEDS ORDERED: HYDROmorphone INJ 0.5 MG/0.5 ML SYR IV PRN (13:16)
[2020-12-31 14:15] LABS: C Reactive Protein 10.9 mg/dl (0-0.29)
[2020-12-31 15:31] LABS: Folate (Folic Acid) 12.7 ng/ml (>5.38)
[2020-12-31] MEDS: oxyCODONE HCL IR 5 MG TAB (IMMEDIATE RELEASE) PO PRN ×2 (15:34→19:36)
[2020-12-31] MEDS: GABAPENTIN 300 MG CAP PO SCH ×2 (16:07→19:36)
[2020-12-31] MEDS: CHOLECALCIFEROL 1,000 UNITS 25 MCG TAB PO SCH (16:07)
[2020-12-31] MEDS: predniSONE 20 MG TAB PO SCH (16:07)
[2020-12-31] MEDS: KETOROLAC TROMETHAMINE 15 MG/ML VIAL IV PRN (17:12)
[2020-12-31] MEDS: ACETAMINOPHEN 500 MG TAB PO SCH (19:36)
[2020-12-31] MEDS ORDERED: MELATONIN 3 MG TAB PO PRN (22:54)
[2021-01-01 06:35] LABS: Hematocrit (blood only) 31.1 % (42-52); Hemoglobin 9.9 g/dL (14.0-18.0); Immature Granulocytes # (auto) 0.01 K/uL (0.00-0.02); Immature Granulocytes % (auto) 0.2 %; Lymphocytes # (auto) 0.94 K/uL (1.2-3.4); Lymphocytes % (auto) 14.5 %; Mean Corpuscular Hemoglobin 25.5 pg (25-34); Mean Corpuscular Hgb Conc 31.8 g/dL (32-36); Mean Corpuscular Volume 80.2 fL (80-100); Mean Platelet Volume 8.5 fL (7.4-10.4); Monocytes # (auto) 0.45 K/uL (0.11-0.59); Neutrophils # (auto) 5.07 K/uL (1.4-6.5); Neutrophils % (auto) 78.3 %; Platelet Count 502 K/uL (130-400); RDW Coefficient of Variation 14.6 % (11.5-14.5); RDW Standard Deviation 41.6 fL (36.4-46.3); Red Blood Count 3.88 M/uL (4.7-6.1); White Blood Count 6.47 K/uL (4.8-10.8)
[2021-01-01 07:09] LABS: Ferritin 450.3 ng/ml (8-388)
[2021-01-01] MEDS: oxyCODONE HCL IR 5 MG TAB (IMMEDIATE RELEASE) PO PRN ×2 (07:29→12:02)
[2021-01-01] MEDS: KETOROLAC TROMETHAMINE 15 MG/ML VIAL IV PRN ×2 (07:29→13:46)
[2021-01-01] MEDS: GABAPENTIN 300 MG CAP PO SCH ×2 (08:36→13:48)
[2021-01-01] MEDS: CHOLECALCIFEROL 1,000 UNITS 25 MCG TAB PO SCH (08:36)
[2021-01-01] MEDS: ACETAMINOPHEN 500 MG TAB PO SCH ×2 (08:36→13:48)
[2021-01-01] MEDS: predniSONE 20 MG TAB PO SCH (08:37)
[2021-01-01] MEDS ORDERED: MAGNESIUM OXIDE 400 MG TAB PO SCH (09:00)
[2021-01-01] MEDS ORDERED: CYANOCOBALAMIN 500 MCG TABLET (VITAMIN B-12) PO SCH (09:00)
--- NOTE | 2021-01-01 14:33 | Discharge Summary ---
Date of Service January 01, 2021 Admission HPI Per Admitting Provider Sanjeev Lugo is a 40 year old male who presents to the ER with generalized joint pains. He reports having symptoms for the past 8 months but progressively getting much worse to the point he feels he is in too much pain to manage at home, severity currently 8/10 after morphine and Toradol. Initial pain was in his jaw then spread to his back. More recently in his ring finger joints but now spread to joints of both hands and shoulders. He is unable to lift his arms above his head due to pain in his shoulders. He feels this is all in his joints than his muscles. Joints also feel swollen. He has not seen a link trainer mechanic. This has previously been worked up with negative MAMADOU screen, RF and lupus antibodies. Inflammatory markers ordered but not taken. 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 No family history of autoimmune conditions. 2-3 months ago had prednisone for a week and helped with his castrejon.nds With regards to his hyperthyroidism. This is currently being worked up by endocrinology. He has not had the US thyroid ordered by endocrinology - reports not yet scheduled. Anti-TPO positive. Low TSH and high free T4. He notes having a large painful thyroid approximately 4 months ago which caused some dysphagia but has improved since then. Of note previous ER note reports prior history of drug abuse. In the ER repeat lumbar spine MRI and thoracic spine MRI demonstrated on previous scan. He was referred to medicine for admission and ongoing management due to intractable pain. Principal Diagnosis 1. Generalized pain? Complex pain syndrome,? Fibromyalgia 2. Autoimmune Thyroiditis with elevated inflammatory marker (ESR/CRP) 3. Anemia- Chronic Discharge Exam General: Resting comfortably in his hospital bed. appears very comfortable and not in any discomfort. NAD. Neck: No JVD. Negative hepatojugular reflex Cardiac: RRR without M/G/R Lungs: CTA without W/R/R Abdomen: Normoactive X4. Soft and nontender in all quadrants. Extremities: s/p Left BKA. Pt with exquisite tenderness (with very minimal palpation) over the bilateral shoulder, bilateral anterior hips, bilateral anterior elbows, and left ankle. ROM to all joints intact. Neuro: A&O X4 cranial nerves II through XII are grossly intact no focal neuro deficits Skin: No obvious skin lesions or rashes Discharge Data Allergies Allergy/AdvReac Type Severity Reaction Status Date / Time methadone AdvReac Intermediate PT STATES Verified 12/31/20 08:42 "IT MAKES ME VERY SICK" Consultations 12/31/20 12:35 ED Decision to Admit Stat Ordered Studies 12/31/20 08:23 MR lumbar spine wo/w con Stat IMPRESSION: 8.1 x 2.3 x 0.9 cm CSF signal intensity epidural abnormality within the left posterolateral aspect of the central canal extending from T11 through L1. This is unchanged since MRI of December 24, 2020 but new since MRI of September 08, 2006. No associated enhancement. This contains multiple thin septations. This has mild to moderate mass effect upon the thecal sac and results in narrowing of the left T12-L1 and L1-L2 neural foramen. The MRI appearance is nonspecific. Differential considerations include an arachnoid cyst or old posttraumatic pseudomeningocele. Otherwise, unremarkable MRI of the lumbar spine. MR thoracic spine wo/w con Stat IMPRESSION: 1. 8.1 x 2.3 x 0.9 cm CSF signal intensity epidural abnormality within the left posterolateral aspect of the central canal extending from T11 through L1. This is unchanged since MRI of December 24, 2020 but new since MRI of September 08, 2006. No associated enhancement. This contains multiple thin septations. This has mild to moderate mass effect upon the thecal sac and results in narrowing of the left T12-L1 and L1-L2 neural foramen. The MRI appearance is nonspecific. Differential considerations include an arachnoid cyst or old posttraumatic pseudomeningocele. 2. Exam mildly compromised by motion artifact. No definite thoracic cord signal abnormality. 3. No disc herniations. 4. 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 - admitting provider also Discussed with Dr Donnelly -who is recommending radioactive uptake scan as outpatient, and US thyroid not required as inpatient. Feels this is concurrent inflammatory arthritis rather than the autoimmune thyroiditis itself. Patient established with endo and has FU scheduled -MAMADOU, rheumatoid factor negative. -CRP, ESR raised (which I suspect to be more related to his autoantibody th yroiditis rather than an underlying polyarthritis. His total CK was only 33) -Do not suspect Tarlov cyst in his back is causing him any symptoms but ok to follow up with ortho spine as outpatient -Alternative concurrent disease that comes with Grave's is myasthenia although main symptom is pain rather than weakness and no fatigability or eye symptoms. panel drawn and pending -based on h/o RSD, I suspect that this is Complex pain syndrome and/or fibromyalgia -No need to keep patient in hospital for this -will D/C on Cymbalta -Lengthy discussion with patient regarding that this medication may take time to become effective and may need uptitrated -I also question a possible component of malingering. Patient was "leery" to take Toradol and tramadol offered but not leery to take the oxycodone that was ordered. In addition, requested something "short acting" to take while at home. He was denied this request. -He can follow-up with his PCP. I would recommend referral to rheumatology as a kody is a diagnosis of exclusion. -> I did note that he has a substantial globulin gap. I do not see testing for HCV or HIV. HCV can be associated with a non-erosive arthropathy that improves with treatment of HCV. Outpatient providers may want to test HCV/HIV. I did not notice this until he had been discharged. Auto-immune thyroiditis can also do this (https://www.jstor.org/stable/55687860), so this may also be the explanation for the globulin gap. (2) Autoimmune thyroiditis: -Follows endocrinology. -Recommend follow-up with them for radioactive iodine uptake study and further treatment (3) Anemia: Stable/chronic (4) Elevated ferritin: Suspect related to inflammatory autoimmune disease as above (5) Elevated blood protein: Consider SPEP as outpatient if does not resolve with treating thyroiditis as above (6) Chronic back pain: Discharged home. Attempted to call but unsuccessful as went straight to voicemail Total Time Total Time Spent Total Time Spent (In Minutes): 25 Discharge Plan Discharge Items Patient Disposition: Home - Self-Care Reason For Visit: THROIDITIS,UNABLE TO MANAGE AT HOME Discharge Diagnosis: 1. Generalized pain (?Complex Pain Syndrome/Fibromyalgia) 2. Thyroiditis with elevated inflammatory markers Activity: Resume your previous activity Non-emergency contact: Primary Care Provider and Specialist Call non-emergency contact if: you have any medication questions and your symptoms worsen Follow-up/Referrals: Brittny Singer, [Primary Care Provider] - Diet: Regular Addtl Attending Provider Instructions: - you were hospitalized with generalized pain. I suspect that this may be related to Complex pain syndrome vs Fibromylagia. - I have started you on Cymbalta (which will take time to become effective and may need increased) - You should follow up with a Rheumatology to help confirm the diagnosis or determine nature of the pain - follow up with Endocrinology (regarding the thyroiditis). They are recommend a radioactive Iodine uptake study (to be ordered by them) - Return to the ED as needed for emergency Pending Studies at Discharge: Yes Studies:: myasthenia gravis panel Stand-Alone Forms: [facility], Work/School Release Medications and DC Order Prescriptions: New duloxetine [Cymbalta] 30 mg capsule,delayed release(DR/EC) 30 mg PO DAILY Qty: 60 RF: 0 magnesium oxide 400 mg (241.3 mg magnesium) Tablet 400 mg PO QAM Qty: 14 RF: 0 Continued gabapentin 300 mg capsule 300 mg PO QID RF: 0 ibuprofen [Advil] 200 mg tablet 1,000 mg PO BID PRN (Reason: Pain) RF: 0 Discharge Orders: Discharge Order (Routine); Ordered 01/01/21 Ordered By: Nadine Santiago/Other Patient Handouts: Relieving Back Pain Admission Data Admit Date/Time: 12/31/20 13:46 Attending Provider: Ted Reyna Admit Provider: Nahun Malagon Primary Care Provider: Brittny Singer Other Providers: Ted Reyna Other Interventions: Discharge Summary Assessment (RN) Last Done: 01/01/21 14:23 Supervising Physician Co-Signing Physician Notes I supervised Nadine Pacheco PA-C on the care of this patient. I interviewed and examined the patient independently of her. The plan is as written in her note except for any following changes/exceptions: None Seen today while ambulating to the bathroom. In no overt distress on our conversation. His symptoms due seem more along the lines of a central pain syndrome rather than PMR, septic joints, or other systemic rheumatologic or infectious etiology. Labs and vital likewise point away from concerning organic cause. He was amenable to trying an SNRI + amitryipline for possible fibromyalgia or other central pain syndrome. Coding Level of Care Code D/C DAY MANAGEMENT <30 MINS Diagnoses Autoimmune thyroiditis E06.3 Anemia D64.9 Elevated ferritin R79.89 Elevated blood protein E88.09 Chronic back pain M54.9; G89.29 Generalized pain R52 Time Spent (min) 25
[2021-01-07 08:02] LABS: Anti-Striated Muscle NEGATIVE (NEGATIVE); Receptor Binding Ab <0.30 nmol/L
== END 2021-01-01 15:17 | disposition home or self-care (01) ==
LOC: ED 07:52 → 3N 07:52 → SUATTDRO 13:46 → 3N 14:28

== ENCOUNTER 2022-10-09 17:59 | Inpatient (IN) ==
[2022-10-09 18:40] LABS: Basophils # (auto) 0.01 K/uL (0-0.2); Basophils % (auto) 0.1 %; Eosinophils # (auto) 0.01 K/uL (0-0.50); Eosinophils % (auto) 0.1 %; Hematocrit (blood only) 37.2 % (42.0-52.0); Hemoglobin 13.8 g/dl (14.0-18.0); Immature Granulocytes # (auto) 0.03 K/uL (0.01-0.20); Immature Granulocytes % (auto) 0.4 %; Lymphocytes # (auto) 0.92 K/uL (1.2-3.4); Lymphocytes % (auto) 10.9 %; Mean Corpuscular Hemoglobin 28.9 pg (25.0-34.0); Mean Corpuscular Hgb Conc 37.1 g/dL (32.0-36.0); Mean Corpuscular Volume 77.8 fL (80.0-100.0); Mean Platelet Volume 10.9 fL (9.4-12.4); Monocytes # (auto) 0.86 K/uL (0.11-0.59); Monocytes % (auto) 10.2 %; Neutrophils # (auto) 6.64 K/uL (1.40-6.50); Neutrophils % (auto) 78.3 %; Platelet Count 262 K/uL (130-400); RDW Coefficient of Variation 11.5 % (11.5-14.5); RDW Standard Deviation 32.3 fL (36.4-46.3); Red Blood Count 4.78 M/uL (4.70-6.10); White Blood Count 8.47 K/ul (4.8-10.8)
[2022-10-09] MEDS ORDERED: SODIUM CHLORIDE 0.9% 1000ML 2,000 ML IV ONE (18:41)
[2022-10-09] MEDS ORDERED: ONDANSETRON INJ 2 MG/ML 2 ML VIAL IV STA ×2 (18:52→22:55)
--- NOTE | 2022-10-09 18:53 | Emergency Department Note ---
Impression & Plan Gastroenteritis, Hypomagnesemia, Nausea in adult, Bloody stool ED Provider Note Provider: Maximiliano Coffey MD DATE OF SERVICE: 10/09/2022 CHIEF COMPLAINT: Nausea vomiting diarrhea, abdominal pain HISTORY OF PRESENT ILLNESS: Patient is a 42-year-old gentleman history of thyroid dysfunction presenting here today reporting for the past approximately 5 days has been having GI symptoms. States he thinks he had a bad chicken sandwich in [facility]. No other sick contacts. Developed nausea vomiting and diarrhea with some diffuse crampy abdominal discomfort. Blood in the stool today. Multiple episodes of nausea and vomiting. No blood in the vomit. Reports general fatigue and thirst. Not able to keep much down and even vomiting up Pepto-Bismol that he is taken at home. Patient reports a little bit of pain in the mid to right chest at times worse with deep breath. No signif icant leg swelling or trauma reported. No history of significant GI dysfunction reported. Thinks he may have food poisoning. No syncope reported. PAST MEDICAL HISTORY: As noted above MEDICATIONS: Reviewed home medications but unsure if has been able to keep them down, Is on Humira SOCIAL HISTORY: nonsmoker PHYSICAL EXAM: GENERAL: alert and oriented in no acute distress on stretcher Head: normocephalic and atraumatic EYES: No injection, discharge or icterus. NECK: Trachea midline. ENT: Mucous membranes pink but somewhat dry LUNGS: Airway patent. No retractions. Breath sounds clear HEART: Regular rate and rhythm. No chest wall tenderness ABDOMEN: Soft with minimal soft tenderness. No peritoneal signs. SKIN: Acyanotic, warm, dry, without rashes EXTREMITIES: Without swelling, tenderness or deformity with a prior left BKA NEUROLOGICAL: No focal deficits. No aphasia. No facial droop or slurred speech. Ambulatory. EK bpm normal sinus rhythm. No PVC or PAC. No acute ST segment elevation or depression with a QTc of 423. CONTINUOUS CARDIAC MONITORING: was ordered and showed a heart rate of 90s-120s bpm in normal sinus rhythm to sinus tachycardia 1 view chest x-ray per interpretation: No evidence of free air under the diaphragm, pneumothorax, pneumonia, or cardiomegaly. Patient's laboratory studies and imaging reviewed. Differential includes Gastroenteritis, food borne illness, infections, appendicitis, diverticulitis, inflammatory bowel disease, obstruction, GI bleed, biliary pathology, volvulus, as well as other pathologies. IMPRESSION/MEDICAL DECISION MAKING: Patient presents with nausea vomiting and some slight blood in the stool today with diarrhea for several days. Very slight abdominal discomfort. Likely this represents more of a gastroenteritis type situation. Given IV fluids. Does report little bit of chest comfort EKG and troponin were sent as well as a chest x-ray but seems less likely be cardiac and pulmonary primary. Not significantly tender in the lower abdomen and low suspicion this represents appendicitis and no obstructive symptoms obviously. Doubt significant GI bleed and likely [id number] bili from the recurrent diarrhea. Given some nausea medicine as well as IV fluids here initially. Seems a bit dehydrated on initial evaluation. Blood work without significant anemia or leukocytosis. Very slight hyponatrem ia, hypokalemia, and hypomagnesemia. No significant renal dysfunction noted. No evidence of hepatitis or pancreatitis with a normal troponin. Negative urinalysis and negative COVID testing. TSH undetectably low and unclear if he has been able to take his methimazole but does not appear in thyroid crisis. Given dose of this here which he kept down. Ordered some IV magnesium supplementation. C. difficile and stool PCR negative for the tested pathogens. Doubt a significant bacterial gastroenteritis as most of these are covered on the panels here. Lack of fever and leukocytosis is reassuring. Proximal intake of crackers and water. Has been sipping water here fairly regularly. Given a bit of Reglan is a bit of nausea with this and some crampy abdominal pain. Again doubt acute intra-abdominal surgical emergency, appendicitis, or obstruction. Discussed with him if he is able to tolerate oral intake trial of supportive care at home with antiemetics as reasonable. With Reglan patient still vomited up even just saltine crackers here. Some mixed bloody and formed stool in the toilet when using the bathroom here. Again lower suspicion for severe upper GI bleed. Given some Pepcid and started on some maintenance IV fluids. We will try additional dose of Zofran. Discussed with him given that he is not able to hold down a significant mount of intake with his bloody diarrhea wished for observation. Doubt a significant bacterial infection or sepsis at this point. Doubt that he is suffering from any intra-abdominal pathology such as diverticulitis or perforation but likely more of a enteritis/colitis situation consistent with gastroenteritis. Patient has a history of autoimmune thyroid issues been on Humira. No history of IBD reported. CRP is elevated at 14.8. Discussed with the hospitalist and CT abdomen pelvis ordered. DIAGNOSIS: Gastroenteritis, hypomagnesemia, hyponatremia, intractable nausea, abdominal pain, bloody stools DISPOSITION: Hospitalist will evaluate Patient was agreeable with this plan. Past Med/Surg History Medical History Anemia Anxiety and depression Autoimmune thyroiditis Bipolar 1 disorder, depressed Chronic back pain Dyslexia Hearing loss Hyperthyroidism Osteoarthritis PTSD (post-traumatic stress disorder) Scoliosis Vitamin D deficiency Surgical History H/O bone graft H/O eye surgery H/O oral surgery History of below knee amputation History of colonoscopy Family History Mother Mental health disorder Hypertension Grandmother (Maternal) Hypertension Grandfather (Maternal) Hypertension Other No family history of adverse response to anesthesia Denies family history of Ovarian cancer Prostate cancer Myocardial infarction Breast cancer Colorectal cancer Social History Smoking Status: Former smoker Tobacco Type: Smokeless Tobacco (Dip or Chew) Age Started Using Tobacco: 22; Second Hand Exposure: No; Do You Dip or Chew Tobacco: No; Tobacco Cessation Education Requested by Patient: No Hx Alcohol Use: Yes Alcohol type: beer Alcohol Intake Frequency: 2-4 x/Month Hx Substance Use: No Preferred Language: [place]i Communication Ability: Effective Visual Impairment: No Limitations Hearing Ability: Hard of Hearing Manager Of Broadcast Content Required: No Beliefs That Will Affect Care: None marital status: Current Living Situation: Spouse current occupational status: employed How many Children do You have: 2 How many Children do You have Comment: 2 boys Other Information That Helps Us Care for You: No Feels Safe at Home: Yes Safety Concerns: Feels Safe At This Time Childhood Exposure to Second-Hand Smoke: Yes Diet: regular caffeine: Yes during the past year weight has: decreased > 10 lbs Dental Care, Regularly: No Physical Activity Frequency: Daily Seatbelt Use: always Sunscreen Use: Yes Assistive Devices: Prosthesis Allergies Allergies Allergy/AdvReac Type Severity Reaction Status Date / Time methadone AdvReac Intermediate PT STATES Verified 01/12/22 09:34 "IT MAKES ME VERY SICK" Home Meds Home Medications Medication Instructions Recorded Confirmed adalimumab 40 mg/0.8 mL 40 mg subcut USEASDIRECTD 10/09/22 10/09/22 subcutaneous pen kit (Humira Pen) folic acid 1 mg tablet 1 mg PO DAILY 10/09/22 10/09/22 methimazole 10 mg tablet 30 mg PO DAILY 10/09/22 10/09/22 Previous Rx's Medication Instructions Recorded gabapentin 300 mg capsule 300 mg PO QID #120 caps 03/10/22 Results & Data (ED) Vital Signs Vital Signs - 24 hr 10/09/22 18:05 10/09/22 19:23 10/09/22 19:45 Temperature 37.6 C H Temperature Source Oral Pulse Rate 117 H 98 H 101 H Pulse Rate from SpO2 Sensor 98 H Respiratory Rate 20 12 18 Blood Pressure 112/75 119/73 128/71 Blood Pressure Mean 87 88 90 Pulse Oximetry 96 98 95 Oxygen Delivery Method Room Air Room Air Room Air Sepsis Recent Fever Within 48 Hours Yes Sepsis New/Unexplained Change in Mental Status N/A Sepsis Action Taken by Nursing No Action Required 10/09/22 20:00 10/09/22 20:30 10/09/22 21:00 Temperature Temperature Source Pulse Rate 104 H 107 H 109 H Pulse Rate from SpO2 Sensor 105 H Respiratory Rate 19 13 13 Blood Pressure 125/72 117/73 112/74 Blood Pressure Mean 89 87 86 Pulse Oximetry 98 97 99 Oxygen Delivery Method Room Air Room Air Room Air Sepsis Recent Fever Within 48 Hours Sepsis New/Unexplained Change in Mental Status Sepsis Action Taken by Nursing 10/09/22 22:00 10/09/22 19:12 10/09/22 23:00 Temperature Temperature Source Pulse Rate 105 H 102 H 114 H Pulse Rate from SpO2 Sensor 105 H Respiratory Rate 15 Blood Pressure 121/72 Blood Pressure Mean 88 Pulse Oximetry 99 Oxygen Delivery Method Room Air Sepsis Recent Fever Within 48 Hours Sepsis New/Unexplained Change in Mental Status Sepsis Action Taken by Nursing 10/09/22 23:04 10/09/22 23:30 10/09/22 23:53 Temperature Temperature Source Pulse Rate 112 H 110 H 107 H Pulse Rate from SpO2 Sensor 111 H 110 H Respiratory Rate 14 32 H 16 Blood Pressure 120/68 126/62 115/66 Blood Pressure Mean 85 83 82 Pulse Oximetry 96 94 Oxygen Delivery Method Sepsis Recent Fever Within 48 Hours Sepsis New/Unexplained Change in Mental Status Sepsis Action Taken by Nursing 10/10/22 00:00 10/10/22 00:30 Temperature Temperature Source Pulse Rate 96 H Pulse Rate from SpO2 Sensor Respiratory Rate 27 H Blood Pressure 109/62 104/69 Blood Pressure Mean 77 80 Pulse Oximetry Oxygen Delivery Method Sepsis Recent Fever Within 48 Hours Sepsis New/Unexplained Change in Mental Status Sepsis Action Taken by Nursing Laboratory Data 10/09/22 18:15 10/09/22 18:15 Lab Results 10/09/22 10/09/22 10/09/22 Range/Units 18:15 18:15 18:18 WBC 8.47 (4.8-10.8) K/ul RBC 4.78 (4.70-6.10) M/uL Hgb 13.8 L (14.0-18.0) g/dl Hct 37.2 L (42.0-52.0) % MCV 77.8 L (80.0-100.0) fL MCH 28.9 (25.0-34.0) pg MCHC 37.1 H (32.0-36.0) g/dL RDW Std Deviation 32.3 L (36.4-46.3) fL RDW Coeff of Salome 11.5 (11.5-14.5) % Plt Count 262 (130-400) K/uL MPV 10.9 (9.4-12.4) fL Immature Gran % (Auto) 0.4 % Neut % (Auto) 78.3 % Lymph % (Auto) 10.9 % [place] % (Auto) 10.2 % Eos % (Auto) 0.1 % Baso % (Auto) 0.1 % Neut # (Auto) 6.64 H (1.40-6.50) K/uL Lymph # (Auto) 0.92 L (1.2-3.4) K/uL [place] # (Auto) 0.86 H (0.11-0.59) K/uL Eos # (Auto) 0.01 (0-0.50) K/uL Baso # (Auto) 0.01 (0-0.2) K/uL Immature Gran # (Auto) 0.03 (0.01-0.20) K/uL Sodium 130 L (136-145) mmol/L Potassium 3.4 L (3.5-5.1) mmol/L Chloride 93 L (98-107) mmol/L Carbon Dioxide 28 (21-32) mmol/L Anion Gap 9 (3-11) BUN 9 (6-23) mg/dl Creatinine 0.60 (0.6-1.4) mg/dl Est Cr Clr Drug Dosing 135.2 ml/min Est GFR ( Amer) 145.8 ml/min Est GFR (Non-Af Amer) 125.8 ml/min BUN/Creatinine Ratio 15.0 (10-20) Glucose 139 H (70-99(Fasting)) mg/dl Calcium 9.2 (8.6-10.3) mg/dl Magnesium 1.6 L (1.7-2.4) mg/dl Total Bilirubin 0.5 (0.2-1.0) mg/dl AST 29 (13-39) U/L ALT 31 (7-52) U/L Alkaline Phosphatase 100 (34-104) U/L Troponin I High Sens 4.7 (0-20) pg/ml C-Reactive Protein 14.80 H (0-0.5) mg/dl Total Protein 7.1 (6.0-8.3) gm/dl Albumin 3.7 (3.4-5.0) gm/dl Globulin 3.4 (2.5-4.0) gm/dl Albumin/Globulin Ratio 1.1 (0.9-2) Lipase 5 L (11-82) U/L TSH < 0.010 L (0.300-4.500) uIu/ml Free T4 4.10 H (0.61-1.60) ng/dl Urine Color Urine Appearance (Clear) Urine pH (4.5-7.5) Ur Specific [place] (1.000-1.030) Urine Protein (Negative) Urine Glucose (UA) (Negative) Urine Ketones (Negative) Urine Blood (Negative) Urine Nitrite (Negative) Urine Bilirubin (Negative) Urine Urobilinogen (Negative) Ur Leukocyte Esterase (Negative) Stl C. cayetanensis PCR (NotDetected) Stool Rotavirus A PCR (NotDetected) Stl Adenov F 40/41 PCR (NotDetected) Stool Astrovirus (PCR) (NotDetected) Stool Campylobacter PCR (NotDetected) Stl C. diff Tox B Gene (Neg) Stool Cryptosporidium PCR (NotDetected) Stl E.coli Shiga Tox PCR (NotDetected) Stl Enterotoxigenic E PCR (NotDetected) Stool EPEC (PCR) (NotDetected) Stool EAEC (PCR) (NotDetected) Stl E. histolytica PCR (NotDetected) Stool Giardia Lamblia PCR (NotDetected) Stool Salmonella PCR (NotDetected) Stool Sapovirus (PCR) (NotDetected) Stl P. shigelloides PCR (NotDetected) Stl Shigella/EIEC PCR (NotDetected) St Y.enterocolitica PCR (NotDetected) Stool Vibrio (PCR) (NotDetected) Stl Vibrio cholerae PCR (NotDetected) Stl Norovirus GI/GII PCR (NotDetected) SARS-CoV-2, RNA, NAAT (NEGATIVE) 10/09/22 10/09/22 10/09/22 Range/Units 19:05 19:05 19:47 WBC (4.8-10.8) K/ul RBC (4.70-6.10) M/uL Hgb (14.0-18.0) g/dl Hct (42.0-52.0) % MCV (80.0-100.0) fL MCH (25.0-34.0) pg MCHC (32.0-36.0) g/dL RDW Std Deviation (36.4-46.3) fL RDW Coeff of Salome (11.5-14.5) % Plt Count (130-400) K/uL MPV (9.4-12.4) fL Immature Gran % (Auto) % Neut % (Auto) % Lymph % (Auto) % [place] % (Auto) % Eos % (Auto) % Baso % (Auto) % Neut # (Auto) (1.40-6.50) K/uL Lymph # (Auto) (1.2-3.4) K/uL [place] # (Auto) (0.11-0.59) K/uL Eos # (Auto) (0-0.50) K/uL Baso # (Auto) (0-0.2) K/uL Immature Gran # (Auto) (0.01-0.20) K/uL Sodium (136-145) mmol/L Potassium (3.5-5.1) mmol/L Chloride (98-107) mmol/L Carbon Dioxide (21-32) mmol/L Anion Gap (3-11) BUN (6-23) mg/dl Creatinine (0.6-1.4) mg/dl Est Cr Clr Drug Dosing ml/min Est GFR ( Amer) ml/min Est GFR (Non-Af Amer) ml/min BUN/Creatinine Ratio (10-20) Glucose (70-99(Fasting)) mg/dl Calcium (8.6-10.3) mg/dl Magnesium (1.7-2.4) mg/dl Total Bilirubin (0.2-1.0) mg/dl AST (13-39) U/L ALT (7-52) U/L Alkaline Phosphatase (34-104) U/L Troponin I High Sens (0-20) pg/ml C-Reactive Protein (0-0.5) mg/dl Total Protein (6.0-8.3) gm/dl Albumin (3.4-5.0) gm/dl Globulin (2.5-4.0) gm/dl Albumin/Globulin Ratio (0.9-2) Lipase (11-82) U/L TSH (0.300-4.500) uIu/ml Free T4 (0.61-1.60) ng/dl Urine Color Yellow Urine Appearance Clear (Clear) Urine pH 6.5 (4.5-7.5) Ur Specific [place] 1.010 (1.000-1.030) Urine Protein Negative (Negative) Urine Glucose (UA) Negative (Negative) Urine Ketones Negative (Negative) Urine Blood Negative (Negative) Urine Nitrite Negative (Negative) Urine Bilirubin Negative (Negative) Urine Urobilinogen Negative (Negative) Ur Leukocyte Esterase Negative (Negative) Stl C. cayetanensis PCR (NotDetected) Stool Rotavirus A PCR (NotDetected) Stl Adenov F 40/41 PCR (NotDetected) Stool Astrovirus (PCR) (NotDetected) Stool Campylobacter PCR (NotDetected) Stl C. diff Tox B Gene Negative Cdiff Gene (Neg) Stool Cryptosporidium PCR (NotDetected) Stl E.coli Shiga Tox PCR (NotDetected) Stl Enterotoxigenic E PCR (NotDetected) Stool EPEC (PCR) (NotDetected) Stool EAEC (PCR) (NotDetected) Stl E. histolytica PCR (NotDetected) Stool Giardia Lamblia PCR (NotDetected) Stool Salmonella PCR (NotDetected) Stool Sapovirus (PCR) (NotDetected) Stl P. shigelloides PCR (NotDetected) Stl Shigella/EIEC PCR (NotDetected) St Y.enterocolitica PCR (NotDetected) Stool Vibrio (PCR) (NotDetected) Stl Vibrio cholerae PCR (NotDetected) Stl Norovirus GI/GII PCR (NotDetected) SARS-CoV-2, RNA, NAAT NEGATIVE (NEGATIVE) 10/09/22 Range/Units 19:47 WBC (4.8-10.8) K/ul RBC (4.70-6.10) M/uL Hgb (14.0-18.0) g/dl Hct (42.0-52.0) % MCV (80.0-100.0) fL MCH (25.0-34.0) pg MCHC (32.0-36.0) g/dL RDW Std Deviation (36.4-46.3) fL RDW Coeff of Salome (11.5-14.5) % Plt Count (130-400) K/uL MPV (9.4-12.4) fL Immature Gran % (Auto) % Neut % (Auto) % Lymph % (Auto) % [place] % (Auto) % Eos % (Auto) % Baso % (Auto) % Neut # (Auto) (1.40-6.50) K/uL Lymph # (Auto) (1.2-3.4) K/uL [place] # (Auto) (0.11-0.59) K/uL Eos # (Auto) (0-0.50) K/uL Baso # (Auto) (0-0.2) K/uL Immature Gran # (Auto) (0.01-0.20) K/uL Sodium (136-145) mmol/L Potassium (3.5-5.1) mmol/L Chloride (98-107) mmol/L Carbon Dioxide (21-32) mmol/L Anion Gap (3-11) BUN (6-23) mg/dl Creatinine (0.6-1.4) mg/dl Est Cr Clr Drug Dosing ml/min Est GFR ( Amer) ml/min Est GFR (Non-Af Amer) ml/min BUN/Creatinine Ratio (10-20) Glucose (70-99(Fasting)) mg/dl Calcium (8.6-10.3) mg/dl Magnesium (1.7-2.4) mg/dl Total Bilirubin (0.2-1.0) mg/dl AST (13-39) U/L ALT (7-52) U/L Alkaline Phosphatase (34-104) U/L Troponin I High Sens (0-20) pg/ml C-Reactive Protein (0-0.5) mg/dl Total Protein (6.0-8.3) gm/dl Albumin (3.4-5.0) gm/dl Globulin (2.5-4.0) gm/dl Albumin/Globulin Ratio (0.9-2) Lipase (11-82) U/L TSH (0.300-4.500) uIu/ml Free T4 (0.61-1.60) ng/dl Urine Color Urine Appearance (Clear) Urine pH (4.5-7.5) Ur Specific [place] (1.000-1.030) Urine Protein (Negative) Urine Glucose (UA) (Negative) Urine Ketones (Negative) Urine Blood (Negative) Urine Nitrite (Negative) Urine Bilirubin (Negative) Urine Urobilinogen (Negative) Ur Leukocyte Esterase (Negative) Stl C. cayetanensis PCR Not Detected (NotDetected) Stool Rotavirus A PCR Not Detected (NotDetected) Stl Adenov F 40/41 PCR Not Detected (NotDetected) Stool Astrovirus (PCR) Not Detected (NotDetected) Stool Campylobacter PCR Not Detected (NotDetected) Stl C. diff Tox B Gene (Neg) Stool Cryptosporidium PCR Not Detected (NotDetected) Stl E.coli Shiga Tox PCR Not Detected (NotDetected) Stl Enterotoxigenic E PCR Not Detected (NotDetected) Stool EPEC (PCR) Not Detected (NotDetected) Stool EAEC (PCR) Not Detected (NotDetected) Stl E. histolytica PCR Not Detected (NotDetected) Stool Giardia Lamblia PCR Not Detected (NotDetected) Stool Salmonella PCR Not Detected (NotDetected) Stool Sapovirus (PCR) Not Detected (NotDetected) Stl P. shigelloides PCR Not Detected (NotDetected) Stl Shigella/EIEC PCR Not Detected (NotDetected) St Y.enterocolitica PCR Not Detected (NotDetected) Stool Vibrio (PCR) Not Detected (NotDetected) Stl Vibrio cholerae PCR Not Detected (NotDetected) Stl Norovirus GI/GII PCR Not Detected (NotDetected) SARS-CoV-2, RNA, NAAT (NEGATIVE) Administered Medications Lactated Ringer's (Lr) 1,000 mls @ 125 mls/hr IV .Q8H SANDEEP Stop: 11/08/22 22:59 Last Admin: 10/09/22 23:09 Dose: 125 mls/hr Documented By: NAN Discontinued Medications Sodium Chloride (Nss 1000ml) 2,000 mls @ 999 mls/hr IV .Q2H1M ONE Stop: 10/09/22 20:41 Last Infusion: 10/09/22 22:00 Dose: 0 mls/hr Documented By: Infusion: 10/09/22 21:15 Dose: 999 mls/hr Documented By: Infusion: 10/09/22 21:00 Dose: 0 mls/hr Documented By: Admin: 10/09/22 19:02 Dose: 999 mls/hr Documented By: NAN Magnesium Sulfate/Dextrose (Magnesium Sulfate / D5w) 1 gm in 100 mls @ 200 mls/hr IV Q30M SANDEEP Stop: 10/09/22 21:49 Last Infusion: 10/09/22 22:02 Dose: 0 mls/hr Documented By: Admin: 10/09/22 21:32 Dose: 200 mls/hr Documented By: Infusion: 10/09/22 21:31 Dose: 0 mls/hr Documented By: Admin: 10/09/22 20:57 Dose: 200 mls/hr Documented By: NAN Acetaminophen (Ofirmev) 1,000 mg in 100 mls @ 400 mls/hr IV NOW STA Stop: 10/09/22 23:09 Last Infusion: 10/10/22 01:34 Dose: 0 mls/hr Documented By: Admin: 10/09/22 23:01 Dose: 400 mls/hr Documented By: NAN Famotidine (Pepcid 20mg Iv Push) 20 mg in 5 mls @ 2.5 mls/min IV NOW STA Stop: 10/09/22 22:57 Last Admin: 10/09/22 23:01 Dose: 2.5 mls/min Documented By: NAN Ioversol (Optiray 320 500ml) 100 ml IV ONCE ONE Stop: 10/09/22 23:53 Last Admin: 10/09/22 23:52 Dose: 89 ml Documented By: MARYCRUZ Methimazole (Methimazole 5 Mg Tablet) 30 mg PO ONE ONE Stop: 10/09/22 20:26 Last Admin: 10/09/22 20:35 Dose: 30 mg Documented By: NAN Metoclopramide HCl (Metoclopramide Hcl Inj 5 Mg/Ml 2 Ml Vial) 10 mg IV NOW STA Stop: 10/09/22 22:06 Last Admin: 10/09/22 22:32 Dose: 10 mg Documented By: NAN Ondansetron HCl (Ondansetron Inj 2 Mg/Ml 2 Ml Vial) 4 mg IV NOW STA Stop: 10/09/22 18:53 Last Admin: 10/09/22 19:03 Dose: 4 mg Documented By: NAN Ondansetron HCl (Ondansetron Inj 2 Mg/Ml 2 Ml Vial) 4 mg IV NOW STA Stop: 10/09/22 22:56 Last Admin: 10/09/22 23:01 Dose: 4 mg Documented By: NAN Imaging Data Radiologist's Impression: Chest X-Ray 10/09/22 18:53 XR chest 1V portable CLINICAL HISTORY: cp, vomiting TECHNIQUE: Single frontal radiograph of the chest was obtained. Comparison: None available at the time of this dictation. FINDINGS: No lines and tubes are seen. The cardiomediastinal silhouette is normal. The lungs are clear. No evidence of pleural effusion or pneumothorax. IMPRESSION: No acute chest disease. ACT 112: Negative or not required by law. Electronically signed by: Kannan Swenson M.D. 10/09/2022 7:43 PM Abdomen/Pelvis CT 10/09/22 23:15 Exam(s): CT ABDOMEN + PELVIS With Contrast IV Amt: 89 ML OPTIRAY 320 EXAM: CT Abdomen and Pelvis With Intravenous Contrast CLINICAL HISTORY: Reason for exam: n/v, bloody stool. TECHNIQUE: Axial computed tomography images of the abdomen and pelvis with intravenous contrast. Automated exposure control was utilized for the study. A dose lowering technique was utilized adhering to the principles of ALARA. CONTRAST: Patient received 89 ML OPTIRAY 320 of IV contrast COMPARISON: No relevant prior studies available. FINDINGS: Lung bases: Unremarkable. No mass. No consolidation. ABDOMEN: Liver: Unremarkable. No mass. Gallbladder and bile ducts: Unremarkable. No calcified stones. No ductal dilation. Pancreas: Unremarkable. No mass. No ductal dilation. Spleen: Unremarkable. No splenomegaly. Adrenals: Unremarkable. No mass. Kidneys and ureters: Unremarkable. No solid mass. No hydronephrosis. Stomach and bowel: Unremarkable. No obstruction. No mucosal thickening. PELVIS: Appendix: No findings to suggest acute appendicitis. Bladder: Unremarkable. No mass. Reproductive: Unremarkable as visualized. ABDOMEN and PELVIS: Intraperitoneal space: Unremarkable. No free air. No significant fluid collection. Bones/joints: No acute fracture. No dislocation. Soft tissues: Unremarkable. Vasculature: Unremarkable. No abdominal aortic aneurysm. Lymph nodes: Unremarkable. No enlarged lymph nodes. IMPRESSION: Normal abdomen and pelvis CT. Electronically signed by: Flash Graves MD 10/10/22 00:41 AM Discharge Plan Visit Data Chief Complaint: Diarrhea Stated Complaint: VOMITING, NAUSEA, BLOODY STOOL, DIARRHEA ED Provider: Maximiliano Coffey Discharge Problem: Gastroenteritis, Hypomagnesemia, Nausea in adult, Bloody stool Patient Disposition: Being Evaluated by Hospitalist
[2022-10-09 18:56] LABS: Albumin Globulin Ratio 1.1 (0.9-2); Albumin Level 3.7 gm/dl (3.4-5.0); Bilirubin,Total 0.5 mg/dl (0.2-1.0); Calcium 9.2 mg/dl (8.6-10.3); Creatinine Clr Calc Pharmacy 135.2 ml/min; Globulin 3.4 gm/dl (2.5-4.0); Potassium 3.4 mmol/L (3.5-5.1); Total Protein 7.1 gm/dl (6.0-8.3)
[2022-10-09 19:05] LABS: Est GFR (African American) 145.8 ml/min; Est GFR (Non-African American) 125.8 ml/min; Magnesium 1.6 mg/dl (1.7-2.4)
[2022-10-09 19:12] LABS: Troponin I High Sensitivity 4.7 pg/ml (0-20)
[2022-10-09 19:14] LABS: Appearance Urine Clear (Clear); Bilirubin Urine Negative (Negative); Blood Urine Negative (Negative); Color Urine Yellow; Glucose Urine UA Negative (Negative); Ketones Urine Negative (Negative); Leukocyte Esterase Urine Negative (Negative); Nitrite Urine Negative (Negative); Protein Urine Negative (Negative); Urobilinogen Urine Negative (Negative); pH Urine 6.5 (4.5-7.5)
--- NOTE | 2022-10-09 19:45 | XRay Report ---
XR chest 1V portable CLINICAL HISTORY: cp, vomiting TECHNIQUE: Single frontal radiograph of the chest was obtained. Comparison: None available at the time of this dictation. FINDINGS: No lines and tubes are seen. The cardiomediastinal silhouette is normal. The lungs are clear. No evid ence of pleural effusion or pneumothorax. IMPRESSION: No acute chest disease. ACT 112: Negative or not required by law. Electronically signed by: Kannan Swenson M.D. 10/09/2022 7:43 PM
[2022-10-09 20:11] LABS: Thyroid Stimulating Hormone < 0.010 uIu/ml (0.300-4.500)
[2022-10-09] MEDS ORDERED: methIMAzole 5 MG TABLET PO ONE (20:25)
[2022-10-09] MEDS: MAGNESIUM SULFATE / D5W 1 GM/100 ML BAG IV SCH ×2 (20:57→21:32)
[2022-10-09 21:38] LABS: Adenovirus F 40/41 PCR Not Detected (NotDetected); Astrovirus PCR Not Detected (NotDetected); Campylobacter PCR Not Detected (NotDetected); Cryptosporidium PCR Not Detected (NotDetected); Cyclospora cayetanensis PCR Not Detected (NotDetected); Entamoeba histolytica PCR Not Detected (NotDetected); Enteroaggregative E.coli(EAEC) Not Detected (NotDetected); Enteropathogenic E.coli (EPEC) Not Detected (NotDetected); Enterotoxigenic E.coli (ETEC) Not Detected (NotDetected); Giardia lamblia PCR Not Detected (NotDetected); Norovirus GI/GII PCR Not Detected (NotDetected); Plesiomonas shigelloides PCR Not Detected (NotDetected); Rotavirus A PCR Not Detected (NotDetected); Salmonella PCR Not Detected (NotDetected); Sapovirus PCR Not Detected (NotDetected); Shiga-like Toxin E.coli (STEC) Not Detected (NotDetected); Shigella/Enteroinvasive E.coli Not Detected (NotDetected); Vibrio cholerae PCR Not Detected (NotDetected); Vibrio species PCR Not Detected (NotDetected); Yersinia enterocolitica PCR Not Detected (NotDetected)
[2022-10-09] MEDS ORDERED: METOCLOPRAMIDE HCL INJ 5 MG/ML 2 ML VIAL IV STA (22:05)
[2022-10-09] MEDS ORDERED: ACETAMINOPHEN 1,000 MG/100 ML VIAL IV STA (22:55)
[2022-10-09] MEDS ORDERED: FAMOTIDINE 20MG IV PUSH 20 MG/5 ML SYR IV STA (22:56)
[2022-10-09] MEDS: LACTATED RINGER'S 1,000 ML IV SCH (23:09)
[2022-10-09 23:43] LABS: C Reactive Protein 14.8 mg/dl (0-0.5)
[2022-10-09] MEDS ORDERED: OPTIRAY 320 500ml IV ONE (23:52)
--- NOTE | 2022-10-10 00:42 | CT Scan Report ---
Exam(s): CT ABDOMEN + PELVIS With Contrast IV Amt: 89 ML OPTIRAY 320 EXAM: CT Abdomen and Pelvis With Intravenous Contrast CLINICAL HISTORY: Reason for exam: n/v, bloody stool. TECHNIQUE: Axial computed tomography images of the abdomen and pelvis with intravenous contrast. Automated exposure control was utilized for the study. A dose lowering technique was utilized adhering to the principles of ALARA. CONTRAST: Patient received 89 ML OPTIRAY 320 of IV contrast COMPARISON: No relevant prior studies available. FINDINGS: Lung bases: Unremarkable. No mass. No consolidation. ABDOMEN: Liver: Unremarkable. No mass. Gallbladder and bile ducts: Unremarkable. No calcified stones. No ductal dilation. Pancreas: Unremarkable. No mass. No ductal dilation. Spleen: Unremarkable. No splenomegaly. Adrenals: Unremarkable. No mass. Kidneys and ureters: Unremarkable. No solid mass. No hydronephrosis. Stomach and bowel: Unremarkable. No obstruction. No mucosal thickening. PELVIS: Appendix: No findings to suggest acute appendicitis. Bladder: Unremarkable. No mass. Reproductive: Unremarkable as visualized. ABDOMEN and PELVIS: Intraperitoneal space: Unremarkable. No free air. No significant fluid collection. Bones/joints: No acute fracture. No dislocation. Soft tissues: Unremarkable. Vasculature: Unremarkable. No abdominal aortic aneurysm. Lymph nodes: Unremarkable. No enlarged lymph nodes. IMPRESSION: Normal abdomen and pelvis CT. Electronically signed by: Flash Graves MD 10/10/22 00:41 AM
--- NOTE | 2022-10-10 00:58 | History & Physical Report ---
Date of Service October 10, 2022 Assessment & Plan (1) Food poisoning: (2) Gastroenteritis: (3) Hypomagnesemia: (4) Bipolar 1 disorder, depressed: (5) Hyperthyroidism: (6) Inflammatory polyarthropathy: (7) Autoimmune thyroiditis: (8) Bloody stool: Plan Toxin induced food poisoning/gastroenteritis/blood in stool- Full liquid diet Status post 2 L normal saline in the ED LR at 125 mils per hour Stool PCR negative Zofran 4 mg IV every 6 hours as needed Famotidine 20 mg IV every 12 hours Acetaminophen 650 mg by mouth every 6 hours as needed for mild pain or fever Hyperparathyroidism- Patient had been on methimazole about 1 and half years ago, has done a trial off of it, but resumed again that 2 to 3 weeks ago. TSH is still suppressed and free T4 still elevated May be contributing some 1-2 loose stools Doses to be adjusted as outpatient Hypomagnesemia/hypokalemia- Magnesium 1.6 Potassium 3.4 Continue LR at 125 mils per hour and recheck laboratories in a.m. Inflammatory polyarthropathy/ankylosing spondylitis- On Humira as outpatient History of Present Illness Chief Complaint: The patient presents to the emergency department with complaint of intractable nausea, vomiting and diarrhea over the past 5 days, that began about 1 hour after eating a chicken salad sandwich in [facility] Primary Care Provider: Brittny Singer DO The patient is a 42-year-old male with a past medical history including ankylosing spondylitis, patellofemoral syndrome, bipolar 1 disorder, scoliosis, hyperparathyroidism, left BKA, autoimmune thyroiditis, inflammatory polyarthropathy. He reports that about 1 hour after eating chicken salad sandwich he developed severe nausea, vomiting and diarrhea. Diarrhea has become darker over the past few days. Stool PCR test in the ED was negative. Allergies Allergy/AdvReac Type Severity Reaction Status Date / Time methadone AdvReac Intermediate PT STATES Verified 01/12/22 09:34 "IT MAKES ME VERY SICK" Home Medications Medication Instructions Recorded Confirmed Type gabapentin 300 mg capsule 300 mg PO QID #120 caps 03/10/22 10/09/22 Rx adalimumab 40 mg/0.8 mL 40 mg subcut USEASDIRECTD 10/09/22 10/09/22 History subcutaneous pen kit (Humira Pen) folic acid 1 mg tablet 1 mg PO DAILY 10/09/22 10/09/22 History methimazole 10 mg tablet 30 mg PO DAILY 10/09/22 10/09/22 History Past Med/Surg History Medical History Anemia Anxiety and depression Autoimmune thyroiditis Bipolar 1 disorder, depressed Chronic back pain Dyslexia Hearing loss Hyperthyroidism Osteoarthritis PTSD (post-traumatic stress disorder) Scoliosis Vitamin D deficiency Surgical History H/O bone graft H/O eye surgery H/O oral surgery History of below knee amputation History of colonoscopy Family History Mother Mental health disorder Hypertension Grandmother (Maternal) Hypertension Grandfather (Maternal) Hypertension Other No family history of adverse response to anesthesia Denies family history of Ovarian cancer Prostate cancer Myocardial infarction Breast cancer Colorectal cancer Social History Smoking Status: Never smoker Tobacco Type: Smokeless Tobacco (Dip or Chew) Age Started Using Tobacco: 22; Second Hand Exposure: No; Do You Dip or Chew Tobacco: No; Hx Alcohol Use: Yes Alcohol type: beer Alcohol Intake Frequency: 2-4 x/Month Hx Substance Use: Yes Non-Prescribed Medications: Marijuana Last Used Substance Other:: yesterday Preferred Language: Wolof Communication Ability: Effective Visual Impairment: No Limitations Hearing Ability: Hard of Hearing Manager Procurement Required: No Beliefs That Will Affect Care: None marital status: Current Living Situation: Spouse current occupational status: employed How many Children do You have: 2 How many Children do You have Comment: 2 boys Feels Safe at Home: Yes Childhood Exposure to Second-Hand Smoke: Yes Diet: regular caffeine: Yes during the past year weight has: decreased > 10 lbs Dental Care, Regularly: No Physical Activity Frequency: Daily Seatbelt Use: always Sunscreen Use: Yes Assistive Devices: Prosthesis Review of Systems Review of Systems: The patient denies chest pain, palpitations, shortness of breath, dyspnea on exertion, cough, lower extremity swelling, sore throat, fevers, chills, sweats, blood in urine, dysuria, urinary frequency or urgency, lightheadedness, dizziness, headache, memory loss, loss of consciousness, rash, imbalance, focal or generalized weakness, numbness or tingling in arms or legs, generalized arthralgias or myalgias, back or neck pain, or night sweats. The review of systems is otherwise negative other than for that already noted above, and at least 10 systems have been reviewed. Physical Exam Physical Exam: The patient is awake, alert and oriented 3, well developed and well nourished, normocephalic and atraumatic, lying in bed and in no acute distress. HEENT--PERRL, EOMI, mucous membranes and oropharynx mildly dry. Neck--supple. No JVD. No bruits. Thyroid normal, trachea midline, no adenopathy. Heart--normal S1 and S2. No murmurs, rubs or gallops. Lungs--clear bilaterally, no respiratory distress, no accessory muscle use. Abdomen--normal bowel sounds and soft. Nontender. Nondistended, no hernias or masses, no organomegaly. Extremities--no cyanosis or clubbing. No edema. Left BKA Dermatologic--normal skin turgor, normal color, no abnormal lymph nodes, no rash. Neurologic--cranial nerves II through XII grossly intact. Rheumatologic--normal range of motion. Psychiatric--normal affect. Results & Data Results & Data Vital Signs (Past 12 Hours) Vital Signs Temp Pulse Resp BP Pulse Ox O2 Del Method 10/09/22 23:00 114 H 10/09/22 19:12 102 H 10/09/22 22:00 105 H 15 121/72 99 Room Air 10/09/22 21:00 109 H 13 112/74 99 Room Air 10/09/22 20:30 107 H 13 117/73 97 Room Air 10/09/22 20:00 104 H 19 125/72 98 Room Air 10/09/22 19:45 101 H 18 128/71 95 Room Air 10/09/22 19:23 98 H 12 119/73 98 Room Air 10/09/22 18:05 37.6 C H 117 H 20 112/75 96 Room Air Laboratory Results Laboratory Results WBC 8.47 K/ul (4.8-10.8) 10/09/22 18:15 RBC 4.78 M/uL (4.70-6.10) 10/09/22 18:15 Hgb 13.8 g/dl (14.0-18.0) L 10/09/22 18:15 Hct 37.2 % (42.0-52.0) L 10/09/22 18:15 MCV 77.8 fL (80.0-100.0) L 10/09/22 18:15 MCH 28.9 pg (25.0-34.0) 10/09/22 18:15 MCHC 37.1 g/dL (32.0-36.0) H 10/09/22 18:15 RDW Std Deviation 32.3 fL (36.4-46.3) L 10/09/22 18:15 RDW Coeff of Salome 11.5 % (11.5-14.5) 10/09/22 18:15 Plt Count 262 K/uL (130-400) 10/09/22 18:15 MPV 10.9 fL (9.4-12.4) 10/09/22 18:15 Immature Gran % (Auto) 0.4 % 10/09/22 18:15 Neut % (Auto) 78.3 % 10/09/22 18:15 Lymph % (Auto) 10.9 % 10/09/22 18:15 Camp % (Auto) 10.2 % 10/09/22 18:15 Eos % (Auto) 0.1 % 10/09/22 18:15 Baso % (Auto) 0.1 % 10/09/22 18:15 Neut # (Auto) 6.64 K/uL (1.40-6.50) H 10/09/22 18:15 Lymph # (Auto) 0.92 K/uL (1.2-3.4) L 10/09/22 18:15 Camp # (Auto) 0.86 K/uL (0.11-0.59) H 10/09/22 18:15 Eos # (Auto) 0.01 K/uL (0-0.50) 10/09/22 18:15 Baso # (Auto) 0.01 K/uL (0-0.2) 10/09/22 18:15 Immature Gran # (Auto) 0.03 K/uL (0.01-0.20) 10/09/22 18:15 Sodium 130 mmol/L (136-145) L 10/09/22 18:15 Potassium 3.4 mmol/L (3.5-5.1) L 10/09/22 18:15 Chloride 93 mmol/L (98-107) L 10/09/22 18:15 Carbon Dioxide 28 mmol/L (21-32) 10/09/22 18:15 Anion Gap 9 (3-11) 10/09/22 18:15 BUN 9 mg/dl (6-23) 10/09/22 18:15 Creatinine 0.60 mg/dl (0.6-1.4) 10/09/22 18:15 Est Cr Clr Drug Dosing 135.2 ml/min 10/09/22 18:15 Est GFR ( Amer) 145.8 ml/min 10/09/22 18:15 Est GFR (Non-Af Amer) 125.8 ml/min 10/09/22 18:15 BUN/Creatinine Ratio 15.0 (10-20) 10/09/22 18:15 Glucose 139 mg/dl (70-99(Fasting)) H 10/09/22 18:15 Calcium 9.2 mg/dl (8.6-10.3) 10/09/22 18:15 Magnesium 1.6 mg/dl (1.7-2.4) L 10/09/22 18:15 Total Bilirubin 0.5 mg/dl (0.2-1.0) 10/09/22 18:15 AST 29 U/L (13-39) 10/09/22 18:15 ALT 31 U/L (7-52) 10/09/22 18:15 Alkaline Phosphatase 100 U/L (34-104) 10/09/22 18:15 Troponin I High Sens 4.7 pg/ml (0-20) 10/09/22 18:15 C-Reactive Protein 14.80 mg/dl (0-0.5) H 10/09/22 18:15 Total Protein 7.1 gm/dl (6.0-8.3) 10/09/22 18:15 Albumin 3.7 gm/dl (3.4-5.0) 10/09/22 18:15 Globulin 3.4 gm/dl (2.5-4.0) 10/09/22 18:15 Albumin/Globulin Ratio 1.1 (0.9-2) 10/09/22 18:15 Lipase 5 U/L (11-82) L 10/09/22 18:15 TSH < 0.010 uIu/ml (0.300-4.500) L 10/09/22 18:18 Free T4 4.10 ng/dl (0.61-1.60) H 10/09/22 18:18 Urine Color Yellow 10/09/22 19:05 Urine Appearance Clear (Clear) 10/09/22 19:05 Urine pH 6.5 (4.5-7.5) 10/09/22 19:05 Ur Specific [place] 1.010 (1.000-1.030) 10/09/22 19:05 Urine Protein Negative (Negative) 10/09/22 19:05 Urine Glucose (UA) Negative (Negative) 10/09/22 19: Urine Ketones Negative (Negative) 10/09/22 19:05 Urine Blood Negative (Negative) 10/09/22 19:05 Urine Nitrite Negative (Negative) 10/09/22 19:05 Urine Bilirubin Negative (Negative) 10/09/22 19:05 Urine Urobilinogen Negative (Negative) 10/09/22 19:05 Ur Leukocyte Esterase Negative (Negative) 10/09/22 19:05 Stl C. cayetanensis PCR Not Detected (NotDetected) 10/09/22 19:47 Stool Rotavirus A PCR Not Detected (NotDetected) 10/09/22 19:47 Stl Adenov F 40/41 PCR Not Detected (NotDetected) 10/09/22 19:47 Stool Astrovirus (PCR) Not Detected (NotDetected) 10/09/22 19:47 Stool Campylobacter PCR Not Detected (NotDetected) 10/09/22 19:47 Stl C. diff Tox B Gene Negative Cdiff Gene (Neg) 10/09/22 19:47 Stool Cryptosporidium PCR Not Detected (NotDetected) 10/09/22 19:47 Stl E.coli Shiga Tox PCR Not Detected (NotDetected) 10/09/22 19:47 Stl Enterotoxigenic E PCR Not Detected (NotDetected) 10/09/22 19:47 Stool EPEC (PCR) Not Detected (NotDetected) 10/09/22 19:47 Stool EAEC (PCR) Not Detected (NotDetected) 10/09/22 19:47 Stl E. histolytica PCR Not Detected (NotDetected) 10/09/22 19:47 Stool Giardia Lamblia PCR Not Detected (NotDetected) 10/09/22 19:47 Stool Salmonella PCR Not Detected (NotDetected) 10/09/22 19:47 Stool Sapovirus (PCR) Not Detected (NotDetected) 10/09/22 19:47 Stl P. shigelloides PCR Not Detected (NotDetected) 10/09/22 19:47 Stl Shigella/EIEC PCR Not Detected (NotDetected) 10/09/22 19:47 St Y.enterocolitica PCR Not Detected (NotDetected) 10/09/22 19:47 Stool Vibrio (PCR) Not Detected (NotDetected) 10/09/22 19:47 Stl Vibrio cholerae PCR Not Detected (NotDetected) 10/09/22 19:47 Stl Norovirus GI/GII PCR Not Detected (NotDetected) 10/09/22 19:47 SARS-CoV-2, RNA, NAAT NEGATIVE (NEGATIVE) 10/09/22 19:05 Impressions Chest X-Ray 10/09/22 18:53 XR chest 1V portable CLINICAL HISTORY: cp, vomiting TECHNIQUE: Single frontal radiograph of the chest was obtained. Comparison: None available at the time of this dictation. FINDINGS: No lines and tubes are seen. The cardiomediastinal silhouette is normal. The lungs are clear. No evidence of pleural effusion or pneumothorax. IMPRESSION: No acute chest disease. ACT 112: Negative or not required by law. Electronically signed by: Kannan Swenson M.D. 10/09/2022 7:43 PM Abdomen/Pelvis CT 10/09/22 23:15 Exam(s): CT ABDOMEN + PELVIS With Contrast IV Amt: 89 ML OPTIRAY 320 EXAM: CT Abdomen and Pelvis With Intravenous Contrast CLINICAL HISTORY: Reason for exam: n/v, bloody stool. TECHNIQUE: Axial computed tomography images of the abdomen and pelvis with intravenous contrast. Automated exposure control was utilized for the study. A dose lowering technique was utilized adhering to the principles of ALARA. CONTRAST: Patient received 89 ML OPTIRAY 320 of IV contrast COMPARISON: No relevant prior studies available. FINDINGS: Lung bases: Unremarkable. No mass. No consolidation. ABDOMEN: Liver: Unremarkable. No mass. Gallbladder and bile ducts: Unremarkable. No calcified stones. No ductal dilation. Pancreas: Unremarkable. No mass. No ductal dilation. Spleen: Unremarkable. No splenomegaly. Adrenals: Unremarkable. No mass. Kidneys and ureters: Unremarkable. No solid mass. No hydronephrosis. Stomach and bowel: Unremarkable. No obstruction. No mucosal thickening. PELVIS: Appendix: No findings to suggest acute appendicitis. Bladder: Unremarkable. No mass. Reproductive: Unremarkable as visualized. ABDOMEN and PELVIS: Intraperitoneal space: Unremarkable. No free air. No significant fluid collection. Bones/joints: No acute fracture. No dislocation. Soft tissues: Unremarkable. Vasculature: Unremarkable. No abdominal aortic aneurysm. Lymph nodes: Unremarkable. No enlarged lymph nodes. IMPRESSION: Normal abdomen and pelvis CT. Electronically signed by: Flash Graves MD 10/10/22 00:41 AM Code Status & VTE Plan Code Status Full code VTE Prophylaxis Plan VTE Prophylaxis will be ordered: Yes PG Care Time/CCT Total # of Minutes Spent Total Time Spent with Patient: Total time spent is greater than 50% in coordination of care (as documented) at patient's floor/unit and/or counseling patient: Coding Level of Care Code 42345 INT INP/OBS CARE 3/75MIN Diagnoses Food poisoning A05.9 Gastroenteritis K52.9 Hypomagnesemia E83.42 Bipolar 1 disorder, depressed F31.9 Hyperthyroidism E05.90 Inflammatory polyarthropathy M06.4 Autoimmune thyroiditis E06.3 Bloody stool K92.1
[2022-10-10] MEDS: LACTATED RINGER'S 1,000 ML IV SCH ×4 (02:43→23:46)
[2022-10-10] MEDS: MoRPHine SULFATE 2 MG/ML CARP IV PRN ×4 (03:33→22:25)
[2022-10-10] MEDS: MELATONIN 3 MG TAB PO PRN ×2 (04:30→23:44)
[2022-10-10] MEDS ORDERED: ONDANSETRON INJ 2 MG/ML 2 ML VIAL IV PRN (06:00)
[2022-10-10 08:27] LABS: Eosinophils # (auto) 0.02 K/uL (0-0.50); Eosinophils % (auto) 0.4 %; Hematocrit (blood only) 30.7 % (42.0-52.0); Immature Granulocytes # (auto) 0.03 K/uL (0.01-0.20); Immature Granulocytes % (auto) 0.6 %; Lymphocytes % (auto) 12.9 %; Mean Corpuscular Hemoglobin 28.3 pg (25.0-34.0); Mean Corpuscular Hgb Conc 35.8 g/dL (32.0-36.0); Mean Corpuscular Volume 78.9 fL (80.0-100.0); Mean Platelet Volume 10.8 fL (9.4-12.4); Monocytes # (auto) 0.68 K/uL (0.11-0.59); Monocytes % (auto) 12.5 %; Neutrophils # (auto) 4.01 K/uL (1.40-6.50); Neutrophils % (auto) 73.6 %; Platelet Count 195 K/uL (130-400); RDW Coefficient of Variation 11.8 % (11.5-14.5); RDW Standard Deviation 33.8 fL (36.4-46.3); Red Blood Count 3.89 M/uL (4.70-6.10); White Blood Count 5.44 K/ul (4.8-10.8)
[2022-10-10 08:56] LABS: Alanine Aminotransferase 22 U/L (7-52); Albumin Globulin Ratio 1.2 (0.9-2); Alkaline Phosphatase 78 U/L (34-104); Anion Gap 6 (3-11); Aspartate Aminotransferase 18 U/L (13-39); BUN Creatinine Ratio 9.1 (10-20); Bilirubin,Total 0.5 mg/dl (0.2-1.0); Blood Urea Nitrogen 5 mg/dl (6-23); Calcium 8.3 mg/dl (8.6-10.3); Carbon Dioxide 27 mmol/L (21-32); Chloride 102 mmol/L (98-107); Creatinine Clr Calc Pharmacy 138.6 ml/min; Est GFR (African American) > 150.0 ml/min; Est GFR (Non-African American) 130.3 ml/min; Globulin 2.6 gm/dl (2.5-4.0); Glucose 99 mg/dl (70-99(Fasting)); Potassium 3.2 mmol/L (3.5-5.1); Sodium 135 mmol/L (136-145); Total Protein 5.6 gm/dl (6.0-8.3)
[2022-10-10] MEDS: methIMAzole 5 MG TABLET PO SCH (09:00)
[2022-10-10] MEDS: FOLIC ACID 1 MG TAB PO SCH (09:00)
[2022-10-10] MEDS: GABAPENTIN 300 MG CAP PO SCH ×4 (09:00→21:08)
[2022-10-10] MEDS: FAMOTIDINE 20 MG in SYRINGE 3 ML IV SCH ×2 (09:07→21:09)
[2022-10-10] MEDS ORDERED: POTASSIUM CHLORIDE CRTAB 20 MEQ TABCR PO STA (10:10)
--- NOTE | 2022-10-10 10:20 | History & Physical Bridge Note ---
Date of Service October 10, 2022 History & Physical Bridge Note I have examined the patient, reviewed the History & Physical and in the interval since the performance of the History & Physical I have noted the following changes of clinical significance: Pt presented to the ER last evening d/t persistent diarrhea and vomiting that started about 30 minutes after eating a gas station chicken sandwich last Monday. He has had some abdominal spasms for which Morphine was ordered. Notes that he is stooling up to 30x per day that is black in color. Denies hematochezia or hematemesis. He has no family hx of IBD or colon CA. Claims he had an EGD/[place] about 6 months ago here but no record of it available in our system and states it was normal. He had a negative stool biofire. CT A/P with contrast was negative for any acute pathology. Lipase normal at 5. Presentation not consistent with food poisoning and warrants further investigation. VSS. Exam remarkable for some tenderness in the LUQ/epigastrium. No guarding or rigidity. +BS. Continue IVF, change diet to clear liquids, add IV PPI BID and continue Pepcid. Stool for occult blood ordered. Will consult GI, appreciate recommendations. Plan to be d/w attending, Dr. Bolanos.
[2022-10-10 10:44] LABS: Magnesium 1.7 mg/dl (1.7-2.4)
--- NOTE | 2022-10-10 10:56 | Gastrointestinal Consultation ---
Date of Consultation October 10, 2022 Assessment & Plan (1) Bloody stool: Plan 42 year old male with abd pain, nausea/vomiting, diarrhea, rectal bleeding with 20-30 bms daily, egd/colon 8 months ago with TI ulceration but negative bx clear liquids today Prep for egd/colon monday NPO after midnight We appreciate assistance in the management of any serological abnormality and corrections to include: hemoglobin >7, INR <2, platelets >50,000, potassium levels >3.5 but <5.3, and sodium levels within 5 points of the reference range prior to endoscopic evaluation. Thank you for allowing us to participate in the care of this patient. Please call with any acute changes, questions or concerns. Please see addendum below with additional recommendation from my supervising physician. Supervising Physician Co-Signing Physician Notes Attending attestation I have seen, examined this patient, and agree with the findings and above by our mid-level provider REY Howard, with the following additions: - patient with hx of ileal ulcerations, now with n/v diarrhea and hematochezia - HD stable - Microcytic anemia - Plan for EGD/Colon tomorrow given normal stool studies History of Present Illness Reason for Consultation: vomiting and diarrhea Requesting Physician: Luis Miguel Attending Physician: John Bolanos MD History of Present Illness 42 year old male with history of bipolar, dyslexia, ankylosing spondylitis, patellofemoral syndrome, scoliosis, hyperparathyroidism, left BKA, autoimmune thyroid and others below admitted with nausea/vomiting - GI asked to evaluate. Known from OP clinic, recent EGD/Colonoscopy in 2021. Exam with ulceration of TI but with negative. abd pain, fevers, nausea/vomiting diarrhea since Monday. Yesterday developed rectal bleeding. red. at least 30- BMs daily Stool 2022: negative CTAP 2022: Normal abdomen and pelvis CT. CTAP 2021: 5 mm pleural base nodule in the right lower lobe. Follow-up per Fleischner guidelines. No definite evidence of acute abdominal or pelvic pathology. Remainder of findings as described. BX 2021: A. Small bowel, duodenum, biopsies: Long intact villi with no significant pathologic change No parasitic organisms are identified B. Stomach, biopsies: Antral mucosa with mild chronic inactive gastritis Body mucosa with no significant pathologic change No specialized intestinal metaplasia or dysplasia is seen C. Esophagus, distal, biopsies: Superficial fragments of squamous mucosa with no significant pathologic change No evidence of eosinophils or an esophagitis No gastric oxyntic or cardia mucosa identified D. Terminal ileum, biopsies: Fragments of small intestinal mucosa with no significant pathologic change No evidence of an ileitis E. Colon, random, biopsies: Fragments colonic mucosa with no significant pathologic change No evidence of a colitis EGD 2021: Normal esophagus. Biopsied. - Normal stomach. Biopsied. - Normal examined duodenum. Biopsied. Colonoscopy 2021: The perianal and digital rectal examinations were normal. A few small-mouthed diverticula were found in the sigmoid colon, descending colon and hepatic flexure. The exam of the colon was otherwise without abnormality. There was a focal area of aphthous ulceration in the ileum, approximately 5 cm proximal to the IC valve. Approximately 5 1-2 mm aphthous ulcers were seen over 1-2 cm at this area. The ileum proximal and distal to this area was normal. Random biopsies taken from throughout the colon and the ileum. Family history of GI malignancy:none Allergies Allergy/AdvReac Type Severity Reaction Status Date / Time methadone AdvReac Intermediate PT STATES Verified 01/12/22 09:34 "IT MAKES ME VERY SICK" Home Medications Medication Instructions Recorded Confirmed Type gabapentin 300 mg capsule 300 mg PO QID #120 caps 03/10/22 10/09/22 Rx adalimumab 40 mg/0.8 mL 40 mg subcut USEASDIRECTD 10/09/22 10/09/22 History subcutaneous pen kit (Humira Pen) folic acid 1 mg tablet 1 mg PO DAILY 10/09/22 10/09/22 History methimazole 10 mg tablet 30 mg PO DAILY 10/09/22 10/09/22 History Patient History Medical History Anemia Anxiety and depression Autoimmune thyroiditis Bipolar 1 disorder, depressed Chronic back pain Dyslexia Hearing loss Hyperthyroidism Osteoarthritis PTSD (post-traumatic stress disorder) Scoliosis Vitamin D deficiency Surgical History H/O bone graft H/O eye surgery H/O oral surgery History of below knee amputation History of colonoscopy Family History Mother Mental health disorder Hypertension Grandmother (Maternal) Hypertension Grandfather (Maternal) Hypertension Other No family history of adverse response to anesthesia Denies family history of Ovarian cancer Prostate cancer Myocardial infarction Breast cancer Colorectal cancer Social History Smoking Status: Former smoker Tobacco Type: Smokeless Tobacco (Dip or Chew) Age Started Using Tobacco: 22; Second Hand Exposure: No; Do You Dip or Chew Tobacco: No; Tobacco Cessation Education Requested by Patient: No Hx Alcohol Use: Yes Alcohol type: beer Alcohol Intake Frequency: 2-4 x/Month Hx Substance Use: No Preferred Language: Azerbaijani Communication Ability: Effective Visual Impairment: No Limitations Hearing Ability: Hard of Hearing P D Driver Required: No Beliefs That Will Affect Care: None marital status: Current Living Situation: Spouse current occupational status: employed How many Children do You have: 2 How many Children do You have Comment: 2 boys Other Information That Helps Us Care for You: No Feels Safe at Home: Yes Safety Concerns: Feels Safe At This Time Childhood Exposure to Second-Hand Smoke: Yes Diet: regular caffeine: Yes during the past year weight has: decreased > 10 lbs Dental Care, Regularly: No Physical Activity Frequency: Daily Seatbelt Use: always Sunscreen Use: Yes Assistive Devices: Prosthesis Review of Systems 2 Review of Systems: All systems reviewed & are unremarkable except as noted in Subjective Physical Exam Constitutional: WD/WN, vitals as above Respiratory: normal respiratory effort, lungs clear to auscultation Cardiovascular: RRR, no murmur, no edema Gastrointestinal (Abdomen): Inspection/Auscultation: abdomen normal to inspection and normal bowel sounds; abdomen not distended Percussion/Palpation: + abdomen tender and abdomen soft Skin: no rashes, warm and dry Results & Data Vital Signs (Past 12 Hours) Vital Signs Temp Pulse Pulse Resp BP BP Pulse Ox 10/10/22 07:50 37.4 C 115 H 16 119/69 93 10/10/22 02:16 36.6 C 88 16 121/77 97 10/10/22 01:30 100 H 28 H 105/67 10/10/22 01:00 89 20 115/63 10/10/22 00:30 96 H 27 H 104/69 10/10/22 00:00 109/62 10/09/22 23:53 107 H 16 115/66 10/09/22 23:30 110 H 32 H 126/62 94 10/09/22 23:04 112 H 14 120/68 96 10/09/22 23:00 114 H O2 Del Method 10/10/22 07:50 Room Air 10/10/22 02:16 Room Air 10/10/22 01:30 10/10/22 01:00 10/10/22 00:30 10/10/22 00:00 10/09/22 23:53 10/09/22 23:30 10/09/22 23:04 10/09/22 23:00 Laboratory Results 10/10/22 10/10/22 10/10/22 Range/Units 10:45 07:45 07:45 WBC 5.44 (4.8-10.8) K/ul RBC 3.89 L (4.70-6.10) M/uL Hgb 11.0 L (14.0-18.0) g/dl Hct 30.7 L (42.0-52.0) % MCV 78.9 L (80.0-100.0) fL MCH 28.3 (25.0-34.0) pg MCHC 35.8 (32.0-36.0) g/dL RDW Std Deviation 33.8 L (36.4-46.3) fL RDW Coeff of Salome 11.8 (11.5-14.5) % Plt Count 195 (130-400) K/uL MPV 10.8 (9.4-12.4) fL Immature Gran % (Auto) 0.6 % Neut % (Auto) 73.6 % Lymph % (Auto) 12.9 % Dickens % (Auto) 12.5 % Eos % (Auto) 0.4 % Baso % (Auto) 0.0 % Neut # (Auto) 4.01 (1.40-6.50) K/uL Lymph # (Auto) 0.70 L (1.2-3.4) K/uL Dickens # (Auto) 0.68 H (0.11-0.59) K/uL Eos # (Auto) 0.02 (0-0.50) K/uL Baso # (Auto) 0.00 (0-0.2) K/uL Immature Gran # (Auto) 0.03 (0.01-0.20) K/uL Sodium 135 L (136-145) mmol/L Potassium 3.2 L (3.5-5.1) mmol/L Chloride 102 (98-107) mmol/L Carbon Dioxide 27 (21-32) mmol/L Anion Gap 6 (3-11) BUN 5 L (6-23) mg/dl Creatinine 0.55 L (0.6-1.4) mg/dl Est Cr Clr Drug Dosing 138.6 ml/min Est GFR ( Amer) > 150.0 ml/min Est GFR (Non-Af Amer) 130.3 ml/min BUN/Creatinine Ratio 9.1 L (10-20) Glucose 99 (70-99(Fasting)) mg/dl Calcium 8.3 L (8.6-10.3) mg/dl Magnesium 1.7 (1.7-2.4) mg/dl Total Bilirubin 0.5 (0.2-1.0) mg/dl AST 18 (13-39) U/L ALT 22 (7-52) U/L Alkaline Phosphatase 78 (34-104) U/L Troponin I High Sens (0-20) pg/ml C-Reactive Protein (0-0.5) mg/dl Total Protein 5.6 L D (6.0-8.3) gm/dl Albumin 3.0 L (3.4-5.0) gm/dl Globulin 2.6 (2.5-4.0) gm/dl Albumin/Globulin Ratio 1.2 (0.9-2) Lipase (11-82) U/L TSH (0.300-4.500) uIu/ml Free T4 (0.61-1.60) ng/dl Urine Color Urine Appearance (Clear) Urine pH (4.5-7.5) Ur Specific [place] (1.000-1.030) Urine Protein (Negative) Urine Glucose (UA) (Negative) Urine Ketones (Negative) Urine Blood (Negative) Urine Nitrite (Negative) Urine Bilirubin (Negative) Urine Urobilinogen (Negative) Ur Leukocyte Esterase (Negative) Stool Occult Bld Scrn Positive A (Negative) Stl C. cayetanensis PCR (NotDetected) Stool Rotavirus A PCR (NotDetected) Stl Adenov F 40/41 PCR (NotDetected) Stool Astrovirus (PCR) (NotDetected) Stool Campylobacter PCR (NotDetected) Stl C. diff Tox B Gene (Neg) Stool Cryptosporidium PCR (NotDetected) Stl E.coli Shiga Tox PCR (NotDetected) Stl Enterotoxigenic E PCR (NotDetected) Stool EPEC (PCR) (NotDetected) Stool EAEC (PCR) (NotDetected) Stl E. histolytica PCR (NotDetected) Stool Giardia Lamblia PCR (NotDetected) Stool Salmonella PCR (NotDetected) Stool Sapovirus (PCR) (NotDetected) Stl P. shigelloides PCR (NotDetected) Stl Shigella/EIEC PCR (NotDetected) St Y.enterocolitica PCR (NotDetected) Stool Vibrio (PCR) (NotDetected) Stl Vibrio cholerae PCR (NotDetected) Stl Norovirus GI/GII PCR (NotDetected) SARS-CoV-2, RNA, NAAT (NEGATIVE) 10/09/22 10/09/22 10/09/22 Range/Units 19:47 19:47 19:05 WBC (4.8-10.8) K/ul RBC (4.70-6.10) M/uL Hgb (14.0-18.0) g/dl Hct (42.0-52.0) % MCV (80.0-100.0) fL MCH (25.0-34.0) pg MCHC (32.0-36.0) g/dL RDW Std Deviation (36.4-46.3) fL RDW Coeff of Salome (11.5-14.5) % Plt Count (130-400) K/uL MPV (9.4-12.4) fL Immature Gran % (Auto) % Neut % (Auto) % Lymph % (Auto) % Dickens % (Auto) % Eos % (Auto) % Baso % (Auto) % Neut # (Auto) (1.40-6.50) K/uL Lymph # (Auto) (1.2-3.4) K/uL Dickens # (Auto) (0.11-0.59) K/uL Eos # (Auto) (0-0.50) K/uL Baso # (Auto) (0-0.2) K/uL Immature Gran # (Auto) (0.01-0.20) K/uL Sodium (136-145) mmol/L Potassium (3.5-5.1) mmol/L Chloride (98-107) mmol/L Carbon Dioxide (21-32) mmol/L Anion Gap (3-11) BUN (6-23) mg/dl Creatinine (0.6-1.4) mg/dl Est Cr Clr Drug Dosing ml/min Est GFR ( Amer) ml/min Est GFR (Non-Af Amer) ml/min BUN/Creatinine Ratio (10-20) Glucose (70-99(Fasting)) mg/dl Calcium (8.6-10.3) mg/dl Magnesium (1.7-2.4) mg/dl Total Bilirubin (0.2-1.0) mg/dl AST (13-39) U/L ALT (7-52) U/L Alkaline Phosphatase (34-104) U/L Troponin I High Sens (0-20) pg/ml C-Reactive Protein (0-0.5) mg/dl Total Protein (6.0-8.3) gm/dl Albumin (3.4-5.0) gm/dl Globulin (2.5-4.0) gm/dl Albumin/Globulin Ratio (0.9-2) Lipase (11-82) U/L TSH (0.300-4.500) uIu/ml Free T4 (0.61-1.60) ng/dl Urine Color Yellow Urine Appearance Clear (Clear) Urine pH 6.5 (4.5-7.5) Ur Specific [place] 1.010 (1.000-1.030) Urine Protein Negative (Negative) Urine Glucose (UA) Negative (Negative) Urine Ketones Negative (Negative) Urine Blood Negative (Negative) Urine Nitrite Negative (Negative) Urine Bilirubin Negative (Negative) Urine Urobilinogen Negative (Negative) Ur Leukocyte Esterase Negative (Negative) Stool Occult Bld Scrn (Negative) Stl C. cayetanensis PCR Not Detected (NotDetected) Stool Rotavirus A PCR Not Detected (NotDetected) Stl Adenov F 40/41 PCR Not Detected (NotDetected) Stool Astrovirus (PCR) Not Detected (NotDetected) Stool Campylobacter PCR Not Detected (NotDetected) Stl C. diff Tox B Gene Negative Cdiff Gene (Neg) Stool Cryptosporidium PCR Not Detected (NotDetected) Stl E.coli Shiga Tox PCR Not Detected (NotDetected) Stl Enterotoxigenic E PCR Not Detected (NotDetected) Stool EPEC (PCR) Not Detected (NotDetected) Stool EAEC (PCR) Not Detected (NotDetected) Stl E. histolytica PCR Not Detected (NotDetected) Stool Giardia Lamblia PCR Not Detected (NotDetected) Stool Salmonella PCR Not Detected (NotDetected) Stool Sapovirus (PCR) Not Detected (NotDetected) Stl P. shigelloides PCR Not Detected (NotDetected) Stl Shigella/EIEC PCR Not Detected (NotDetected) St Y.enterocolitica PCR Not Detected (NotDetected) Stool Vibrio (PCR) Not Detected (NotDetected) Stl Vibrio cholerae PCR Not Detected (NotDetected) Stl Norovirus GI/GII PCR Not Detected (NotDetected) SARS-CoV-2, RNA, NAAT (NEGATIVE) 10/09/22 10/09/22 10/09/22 Range/Units 19:05 18:18 18:15 WBC (4.8-10.8) K/ul RBC (4.70-6.10) M/uL Hgb (14.0-18.0) g/dl Hct (42.0-52.0) % MCV (80.0-100.0) fL MCH (25.0-34.0) pg MCHC (32.0-36.0) g/dL RDW Std Deviation (36.4-46.3) fL RDW Coeff of Salome (11.5-14.5) % Plt Count (130-400) K/uL MPV (9.4-12.4) fL Immature Gran % (Auto) % Neut % (Auto) % Lymph % (Auto) % Dickens % (Auto) % Eos % (Auto) % Baso % (Auto) % Neut # (Auto) (1.40-6.50) K/uL Lymph # (Auto) (1.2-3.4) K/uL Dickens # (Auto) (0.11-0.59) K/uL Eos # (Auto) (0-0.50) K/uL Baso # (Auto) (0-0.2) K/uL Immature Gran # (Auto) (0.01-0.20) K/uL Sodium 130 L (136-145) mmol/L Potassium 3.4 L (3.5-5.1) mmol/L Chloride 93 L (98-107) mmol/L Carbon Dioxide 28 (21-32) mmol/L Anion Gap 9 (3-11) BUN 9 (6-23) mg/dl Creatinine 0.60 (0.6-1.4) mg/dl Est Cr Clr Drug Dosing 135.2 ml/min Est GFR ( Amer) 145.8 ml/min Est GFR (Non-Af Amer) 125.8 ml/min BUN/Creatinine Ratio 15.0 (10-20) Glucose 139 H (70-99(Fasting)) mg/dl Calcium 9.2 (8.6-10.3) mg/dl Magnesium 1.6 L (1.7-2.4) mg/dl Total Bilirubin 0.5 (0.2-1.0) mg/dl AST 29 (13-39) U/L ALT 31 (7-52) U/L Alkaline Phosphatase 100 (34-104) U/L Troponin I High Sens 4.7 (0-20) pg/ml C-Reactive Protein 14.80 H (0-0.5) mg/dl Total Protein 7.1 (6.0-8.3) gm/dl Albumin 3.7 (3.4-5.0) gm/dl Globulin 3.4 (2.5-4.0) gm/dl Albumin/Globulin Ratio 1.1 (0.9-2) Lipase 5 L (11-82) U/L TSH < 0.010 L (0.300-4.500) uIu/ml Free T4 4.10 H (0.61-1.60) ng/dl Urine Color Urine Appearance (Clear) Urine pH (4.5-7.5) Ur Specific [place] (1.000-1.030) Urine Protein (Negative) Urine Glucose (UA) (Negative) Urine Ketones (Negative) Urine Blood (Negative) Urine Nitrite (Negative) Urine Bilirubin (Negative) Urine Urobilinogen (Negative) Ur Leukocyte Esterase (Negative) Stool Occult Bld Scrn (Negative) Stl C. cayetanensis PCR (NotDetected) Stool Rotavirus A PCR (NotDetected) Stl Adenov F 40/41 PCR (NotDetected) Stool Astrovirus (PCR) (NotDetected) Stool Campylobacter PCR (NotDetected) Stl C. diff Tox B Gene (Neg) Stool Cryptosporidium PCR (NotDetected) Stl E.coli Shiga Tox PCR (NotDetected) Stl Enterotoxigenic E PCR (NotDetected) Stool EPEC (PCR) (NotDetected) Stool EAEC (PCR) (NotDetected) Stl E. histolytica PCR (NotDetected) Stool Giardia Lamblia PCR (NotDetected) Stool Salmonella PCR (NotDetected) Stool Sapovirus (PCR) (NotDetected) Stl P. shigelloides PCR (NotDetected) Stl Shigella/EIEC PCR (NotDetected) St Y.enterocolitica PCR (NotDetected) Stool Vibrio (PCR) (NotDetected) Stl Vibrio cholerae PCR (NotDetected) Stl Norovirus GI/GII PCR (NotDetected) SARS-CoV-2, RNA, NAAT NEGATIVE (NEGATIVE) 10/09/22 Range/Units 18:15 WBC 8.47 (4.8-10.8) K/ul RBC 4.78 (4.70-6.10) M/uL Hgb 13.8 L (14.0-18.0) g/dl Hct 37.2 L (42.0-52.0) % MCV 77.8 L (80.0-100.0) fL MCH 28.9 (25.0-34.0) pg MCHC 37.1 H (32.0-36.0) g/dL RDW Std Deviation 32.3 L (36.4-46.3) fL RDW Coeff of Salome 11.5 (11.5-14.5) % Plt Count 262 (130-400) K/uL MPV 10.9 (9.4-12.4) fL Immature Gran % (Auto) 0.4 % Neut % (Auto) 78.3 % Lymph % (Auto) 10.9 % Dickens % (Auto) 10.2 % Eos % (Auto) 0.1 % Baso % (Auto) 0.1 % Neut # (Auto) 6.64 H (1.40-6.50) K/uL Lymph # (Auto) 0.92 L (1.2-3.4) K/uL Dickens # (Auto) 0.86 H (0.11-0.59) K/uL Eos # (Auto) 0.01 (0-0.50) K/uL Baso # (Auto) 0.01 (0-0.2) K/uL Immature Gran # (Auto) 0.03 (0.01-0.20) K/uL Sodium (136-145) mmol/L Potassium (3.5-5.1) mmol/L Chloride (98-107) mmol/L Carbon Dioxide (21-32) mmol/L Anion Gap (3-11) BUN (6-23) mg/dl Creatinine (0.6-1.4) mg/dl Est Cr Clr Drug Dosing ml/min Est GFR ( Amer) ml/min Est GFR (Non-Af Amer) ml/min BUN/Creatinine Ratio (10-20) Glucose (70-99(Fasting)) mg/dl Calcium (8.6-10.3) mg/dl Magnesium (1.7-2.4) mg/dl Total Bilirubin (0.2-1.0) mg/dl AST (13-39) U/L ALT (7-52) U/L Alkaline Phosphatase (34-104) U/L Troponin I High Sens (0-20) pg/ml C-Reactive Protein (0-0.5) mg/dl Total Protein (6.0-8.3) gm/dl Albumin (3.4-5.0) gm/dl Globulin (2.5-4.0) gm/dl Albumin/Globulin Ratio (0.9-2) Lipase (11-82) U/L TSH (0.300-4.500) uIu/ml Free T4 (0.61-1.60) ng/dl Urine Color Urine Appearance (Clear) Urine pH (4.5-7.5) Ur Specific [place] (1.000-1.030) Urine Protein (Negative) Urine Glucose (UA) (Negative) Urine Ketones (Negative) Urine Blood (Negative) Urine Nitrite (Negative) Urine Bilirubin (Negative) Urine Urobilinogen (Negative) Ur Leukocyte Esterase (Negative) Stool Occult Bld Scrn (Negative) Stl C. cayetanensis PCR (NotDetected) Stool Rotavirus A PCR (NotDetected) Stl Adenov F 40/41 PCR (NotDetected) Stool Astrovirus (PCR) (NotDetected) Stool Campylobacter PCR (NotDetected) Stl C. diff Tox B Gene (Neg) Stool Cryptosporidium PCR (NotDetected) Stl E.coli Shiga Tox PCR (NotDetected) Stl Enterotoxigenic E PCR (NotDetected) Stool EPEC (PCR) (NotDetected) Stool EAEC (PCR) (NotDetected) Stl E. histolytica PCR (NotDetected) Stool Giardia Lamblia PCR (NotDetected) Stool Salmonella PCR (NotDetected) Stool Sapovirus (PCR) (NotDetected) Stl P. shigelloides PCR (NotDetected) Stl Shigella/EIEC PCR (NotDetected) St Y.enterocolitica PCR (NotDetected) Stool Vibrio (PCR) (NotDetected) Stl Vibrio cholerae PCR (NotDetected) Stl Norovirus GI/GII PCR (NotDetected) SARS-CoV-2, RNA, NAAT (NEGATIVE)
[2022-10-10] MEDS: PANTOprazole 40 MG in SYRINGE 0 ML IV SCH ×2 (11:08→21:09)
[2022-10-10] MEDS: ACETAMINOPHEN 1,000 MG/100 ML VIAL IV PRN ×2 (13:21→19:25)
--- NOTE | 2022-10-10 16:40 | Electrocardiogram Report ---
Test Reason : Blood Pressure : / mmHG Vent. Rate : 099 BPM Atrial Rate : 099 BPM P-R Int : 128 ms QRS Dur : 092 ms QT Int : 330 ms P-R-T Axes : 051 064 038 degrees QTc Int : 423 ms Normal sinus rhythm Incomplete right bundle branch block No previous ECGs available Confirmed by Minor Sandhu ([id number]) on 10/10/2022 4:40:37 PM Referred By: REFERRED SELF Confirmed By:Rell Sandhu
[2022-10-10] MEDS ORDERED: LAVAGE SOLUTION 4000ML PO SCH (16:45)
[2022-10-11] MEDS: LACTATED RINGER'S 1,000 ML IV SCH (07:03)
[2022-10-11] MEDS: MoRPHine SULFATE 2 MG/ML CARP IV PRN (07:03)
[2022-10-11 07:25] LABS: Basophils # (auto) 0.01 K/uL (0-0.2); Basophils % (auto) 0.2 %; Eosinophils # (auto) 0.04 K/uL (0-0.50); Eosinophils % (auto) 0.7 %; Hemoglobin 10.8 g/dl (14.0-18.0); Immature Granulocytes # (auto) 0.02 K/uL (0.01-0.20); Immature Granulocytes % (auto) 0.4 %; Lymphocytes # (auto) 0.78 K/uL (1.2-3.4); Lymphocytes % (auto) 14.2 %; Mean Corpuscular Hemoglobin 28.1 pg (25.0-34.0); Mean Corpuscular Volume 78.1 fL (80.0-100.0); Mean Platelet Volume 10.5 fL (9.4-12.4); Monocytes # (auto) 0.57 K/uL (0.11-0.59); Monocytes % (auto) 10.3 %; Neutrophils # (auto) 4.09 K/uL (1.40-6.50); Neutrophils % (auto) 74.2 %; Platelet Count 199 K/uL (130-400); RDW Coefficient of Variation 12.1 % (11.5-14.5); RDW Standard Deviation 34.1 fL (36.4-46.3); Red Blood Count 3.84 M/uL (4.70-6.10); White Blood Count 5.51 K/ul (4.8-10.8)
[2022-10-11 07:49] LABS: Albumin Globulin Ratio 1.1 (0.9-2); BUN Creatinine Ratio 6.9 (10-20); Bilirubin,Total 0.5 mg/dl (0.2-1.0); Calcium 8.4 mg/dl (8.6-10.3); Creatinine Clr Calc Pharmacy 131.5 ml/min; Est GFR (African American) 147.8 ml/min; Est GFR (Non-African American) 127.5 ml/min; Globulin 2.8 gm/dl (2.5-4.0); Magnesium 1.5 mg/dl (1.7-2.4); Potassium 3.6 mmol/L (3.5-5.1); Total Protein 5.8 gm/dl (6.0-8.3)
--- NOTE | 2022-10-11 08:38 | Gastroenterology Progress Note ---
Date of Service October 11, 2022 Assessment & Plan (1) Diarrhea: Plan: Plan for EGD/Colonoscopy today Admission and Anticipated Discharge Date Admission Date: October 10, 2022 Subjective Feels well, prep is yellow in color. Physical Exam Constitutional: WD/WN, vitals as above Respiratory: normal respiratory effort, lungs clear to auscultation Cardiovascular: RRR, no murmur, no edema Gastrointestinal (Abdomen): Inspection/Auscultation: abdomen normal to inspection and normal bowel sounds; abdomen not distended Percussion/[place]pat[place] on: + abdomen tender and abdomen soft Skin: no rashes, warm and dry Results & Data Vital Signs (Past 12 Hours) Vital Signs Temp Pulse Resp BP Pulse Ox O2 Del Method 10/11/22 08:11 36.5 C 94 H 16 121/69 95 Room Air 10/11/22 07:17 37.1 C 98 H 18 118/75 95 Room Air 10/10/22 23:34 36.8 C 94 H 18 134/82 98 Room Air 10/10/22 21:02 37.9 C H 99 H 20 116/69 96 Room Air
--- NOTE | 2022-10-11 08:41 | Anesthesiology Consultation ---
Date of Service October 11, 2022 Assessment & Plan ASA ASA3 Proposed Anesthesia Anesthesia Type: MAC Risk / Benefits Reviewed With: PT / POA / Parent / Guardian, Accepts Plan and Informed Consent Obtained History Surgery Operation Date: 10/11/22 16:45 Proposed Procedures p Colonoscopy EGD Dr Crisostomo - Charly Crisostomo MD Height/Weight Height: 5 ft 7 in Weight: 54.9 kg Allergies Allergy/AdvReac Type Severity Reaction Status Date / Time methadone AdvReac Intermediate PT STATES Verified 10/11/22 08:35 "IT MAKES ME VERY SICK" Medications Home Medications Medication Instructions Recorded Confirmed Last Taken gabapentin 300 mg capsule 300 mg PO QID #120 caps 03/10/22 10/09/22 Unknown adalimumab 40 mg/0.8 mL 40 mg subcut USEASDIRECTD 10/09/22 10/09/22 Unknown subcutaneous pen kit (Humira Pen) folic acid 1 mg tablet 1 mg PO DAILY 10/09/22 10/09/22 Unknown methimazole 10 mg tablet 30 mg PO DAILY 10/09/22 10/09/22 Unknown Active Medications Generic Name Dose Route Start Last Admin Trade Name Freq PRN Reason Stop Dose Admin Folic Acid 1 mg 10/10/22 09:00 10/10/22 09:00 Folic Acid 1 Mg Tab PO 11/09/22 08:59 1 mg DAILY SANDEEP Administration Gabapentin 300 mg 10/10/22 09:00 10/10/22 21:08 Gabapentin 300 Mg Cap PO 11/09/22 08:59 300 mg QID SANDEEP Administration Lactated Ringer's 1,000 mls @ 125 mls/hr 10/09/22 23:00 10/11/22 07:52 Lr IV 11/08/22 22:59 0 mls/hr .Q8H SANDEEP Infusion Famotidine 20 mg/ Syringe 5 mls @ 2.5 mls/min 10/10/22 09:00 10/10/22 21:09 IV 11/09/22 08:59 2.5 mls/min Q12H SANDEEP Administration Acetaminophen 1,000 mg in 100 mls @ 400 mls/hr 10/10/22 03:25 10/10/22 19:54 Ofirmev IV 10/13/22 03:24 Infused Q8H PRN Infusion Mild-Mod Pain (Scale 1-6) Pantoprazole Sodium 40 mg/ 10 mls @ 5 mls/min 10/10/22 10:30 10/10/22 21:09 Syringe IV 11/09/22 10:29 5 mls/min BID SANDEEP Administration Melatonin 3 mg 10/10/22 04:18 10/10/22 23:44 Melatonin 3 Mg Tab PO 11/09/22 04:17 3 mg HS PRN Administration Sleep Methimazole 30 mg 10/10/22 09:00 10/10/22 09:00 Methimazole 5 Mg Tablet PO 11/09/22 08:59 30 mg DAILY SANDEEP Administration Morphine Sulfate 2 mg 10/10/22 03:25 10/11/22 07:03 Morphine Sulfate 2 Mg/Ml Carp IV 10/24/22 03:24 2 mg Q6H PRN Administration Severe Pain (Scale 7, 8, 9,10) Ondansetron HCl 4 mg 10/10/22 06:00 10/11/22 00:09 Ondansetron Inj 2 Mg/Ml 2 Ml Vial IV 11/09/22 05:59 4 mg Q6H PRN Administration Nausea NPO Date Last Intake of Fluids: 10/11/22 Time Last Intake of Fluids: 05:00 Date Last Intake of Solids: 10/05/22 Past Medical History Medical History Anemia Anxiety and depression Autoimmune thyroiditis Bipolar 1 disorder, depressed Bloody stool Chronic back pain Dyslexia Hearing loss Left Hyperthyroidism Osteoarthritis PTSD (post-traumatic stress disorder) Scoliosis Vitamin D deficiency Exercise / Class Metabolic Activity II 4-5 Yardwork/Stairs/Walk up hill Past Family History Family History Mother Mental health disorder bipolar, border line schizophrenia, depression, anxiety Hypertension Grandmother (Maternal) Hypertension Grandfather (Maternal) Hypertension Other No family history of adverse response to anesthesia Denies family history of Ovarian cancer Prostate cancer Myocardial infarction Breast cancer Colorectal cancer Past Surgical History Surgical History H/O bone graft LEFT HIP H/O eye surgery H/O oral surgery History of below knee amputation Left (r/t injury) History of colonoscopy Past Anesthesia History No Hx of Anesthesia Complications and No Family Hx of Anesthesia Complications History of PONV No Hx of PONV and No Hx of Motion Sickness Social History Smoking Status: Former smoker tobacco type: smokeless tobacco Do You Dip or Chew Tobacco: No Hx Alcohol Use: Yes Alcohol type: beer alcohol intake frequency: a few times a month Hx Substance Use: No substance use type: marijuana Last Used Substance Other:: yesterday Review of Systems denies fever/cough/ colds/ chest pain/ SOB/ SHINE denies SHINE Physical Exam Vital Signs Last Vital Signs Temp 36.5 C 10/11/22 08:11 Pulse 94 H 10/11/22 08:11 Resp 16 10/11/22 08:11 BP 121/69 10/11/22 08:11 Pulse Ox 95 10/11/22 08:11 O2 Del Method Room Air 10/11/22 08:11 ENMT Mouth: no TMJ abnormality and no dentition abnormality Thyromental Distance: > or= 3.5 Finger Breadths Mallampati Class: II Neck neck extension not limited Respiratory normal respiratory effort; no respiratory distress Auscultation: lungs clear to auscultation bilaterally Cardiovascular Rate/Rhythm: regular rate and regular rhythm Neurologic moves all extremities Psychiatric Orientation: alert and oriented x 3 Testing Laboratory Results 10/11/22 06:48 10/11/22 06:48 Urine Color Yellow 10/09/22 19:05 Urine Appearance Clear (Clear) 10/09/22 19:05 Urine pH 6.5 (4.5-7.5) 10/09/22 19:05 Ur Specific [place] 1.010 (1.000-1.030) 10/09/22 19:05 Urine Protein Negative (Negative) 10/09/22 19:05 Urine Glucose (UA) Negative (Negative) 10/09/22 19:05 Urine Ketones Negative (Negative) 10/09/22 19:05 Urine Nitrite Negative (Negative) 10/09/22 19:05 Ur Leukocyte Esterase Negative (Negative) 10/09/22 19:05
[2022-10-11] MEDS ORDERED: fentaNYL citrate PF 100 MCG/2 ML VIAL ONE (08:59)
[2022-10-11] MEDS ORDERED: KETAMINE 50 MG/5 ML SYRINGE ONE (08:59)
[2022-10-11] MEDS ORDERED: LIDOCAINE 2% 2 ML VIAL/AMP(20MG/ML) INFIL ONE (08:59)
[2022-10-11] MEDS ORDERED: PROPOFOL IV EMULSION 10 MG/ML 20 ML VIAL IV ONE (08:59)
[2022-10-11] MEDS ORDERED: MIDAZOLAM HCL 1 MG/ML 2ML VIAL ONE (08:59)
[2022-10-11] MEDS ORDERED: ONDANSETRON INJ 2 MG/ML 2 ML VIAL ONE (09:33)
--- NOTE | 2022-10-11 09:36 | GI REPORT ---
Patient Name: Sanjeev Lugo Procedure Date: 10/11/2022 9:11 AM Date of : 1980 Admit Type: Inpatient Age: 42 Gender: Male Attending MD: Charly Crisostomo MD, Procedure: Upper GI endoscopy Providers: Charly Crisostomo MD Referring MD: Referred John Cortez Indications: Iron deficiency anemia, Diarrhea Medicines: Propofol per Anesthesia Complications: No immediate complications. Estimated blood loss: None. Estimated Blood Loss: Estimated blood loss: none. Procedure: Pre-Anesthesia Assessment: - Pre-Anesthesia Assessment: - Prior to the procedure, a History and Physical was performed, and patient medications, allergies and sensitivities were reviewed. The patient's tolerance of previous anesthesia was reviewed. Please see [employer] for complete details. - The risks and benefits of the procedure and the sedation options and risks were discussed with the patient. All questions were answered and informed consent was obtained. - Patient identification and proposed procedure were verified prior to the procedure by the physician and the nurse. The procedure was verified in the pre-procedure area in the procedure room. After obtaining informed consent, the endoscope was passed carefully and meticuously under direct vision and only advanced when the lumen was clearly identified, C02 insuflation was utilized throughout the entirity of the procedure. Throughout the procedure, the patient's blood pressure, pulse, and oxygen saturations were monitored continuously. After obtaining informed consent, the endoscope was passed under direct vision. Throughout the procedure, the patient's blood pressure, pulse, and oxygen saturations were monitored continuously. The Endoscope was introduced through the mouth, and advanced to the second part of duodenum. The upper GI endoscopy was accomplished without difficulty. The patient tolerated the procedure well. Findings: A small hiatal hernia was present. The entire examined stomach was normal. The examined duodenum was normal. Biopsies for histology were taken with a cold forceps for evaluation of celiac disease. Impression: - Small hiatal hernia. - Normal stomach. - Normal examined duodenum. Biopsied. Recommendation: - Await pathology results. - Use Prilosec (omeprazole) 20 mg PO daily. - Perform a colonoscopy today. Charly Crisostomo MD 10/11/2022 9:36:10 AM This report has been signed electronically. Note Initiated On: 10/11/2022 9:11 AM Number of Addenda: 0 I attest to the content of the Intraoperative Record and orders documented therein, exceptions below {[id number]}
--- NOTE | 2022-10-11 09:39 | GI REPORT ---
Patient Name: Sanjeev Lugo Procedure Date: 10/11/2022 9:11 AM Date of : 1980 Admit Type: Inpatient Age: 42 Gender: Male Attending MD: Charly Crisostomo MD, Procedure: Colonoscopy Providers: Charly Crisostomo MD Referring MD: Referred John Cortez Indications: Chronic diarrhea, Hematochezia Medicines: Propofol per Anesthesia Complications: No immediate complications. Estimated blood loss: None. Estimated Blood Loss: Estimated blood loss: none. Procedure: Pre-Anesthesia Assessment: - Pre-Anesthesia Assessment: - Prior to the procedure, a History and Physical was performed, and patient medications, allergies and sensitivities were reviewed. The patient's tolerance of previous anesthesia was reviewed. Please see [employer] for complete details. - The risks and benefits of the procedure and the sedation options and risks were discussed with the patient. All questions were answered and informed consent was obtained. - Patient identification and proposed procedure were verified prior to the procedure by the physician and the nurse. The procedure was verified in the pre-procedure area in the procedure room. After obtaining informed consent, the endoscope was passed carefully and meticuously under direct vision and only advanced when the lumen was clearly identified, C02 insuflation was utilized throughout the entirity of the procedure. Throughout the procedure, the patient's blood pressure, pulse, and oxygen saturations were monitored continuously. After I obtained informed consent, the scope was passed under direct vision. Throughout the procedure, the patient's blood pressure, pulse, and oxygen saturations were monitored continuously. The Colonoscope was introduced through the anus and advanced to the terminal ileum, with identification of the appendiceal orifice and IC valve. The colonoscopy was performed without difficulty. The patient tolerated the procedure well. The quality of the bowel preparation was fair. Findings: The terminal ileum appeared normal. Biopsies were taken with a cold forceps for histology. A few small and large-mouthed diverticula were found in the sigmoid colon and ascending colon. No signs of bleeding with yellow stool throughout colon Internal hemorrhoids were found during retroflexion. Biopsies for histology were taken with a cold forceps from the entire colon for evaluation of microscopic colitis. Impression: - Preparation of the colon was fair. - The examined portion of the ileum was normal. Biopsied. - Diverticulosis in the sigmoid colon and in the ascending colon. - Internal hemorrhoids. - Biopsies were taken with a cold forceps from the entire colon for evaluation of microscopic colitis. Recommendation: - Return patient to hospital [facility]. - Use fiber, for example Citrucel, Fibercon, Konsyl or Metamucil. - Await pathology results. - Advance diet Charly Crisostomo MD 10/11/2022 9:38:44 AM This report has been signed electronically. Note Initiated On: 10/11/2022 9:11 AM Number of Addenda: 0 I attest to the content of the Intraoperative Record and orders documented therein, exceptions below {[id number]}
[2022-10-11] MEDS: FAMOTIDINE 20 MG in SYRINGE 3 ML IV SCH (10:19)
[2022-10-11] MEDS: PANTOprazole 40 MG in SYRINGE 0 ML IV SCH (10:19)
[2022-10-11] MEDS: ACETAMINOPHEN 1,000 MG/100 ML VIAL IV PRN (10:23)
[2022-10-11] MEDS: GABAPENTIN 300 MG CAP PO SCH ×2 (10:24→12:34)
[2022-10-11] MEDS: FOLIC ACID 1 MG TAB PO SCH (10:24)
[2022-10-11] MEDS: methIMAzole 5 MG TABLET PO SCH (10:25)
[2022-10-11] MEDS: MAGNESIUM SULFATE / D5W 1 GM/100 ML BAG IV SCH ×2 (10:26→12:34)
--- NOTE | 2022-10-11 10:49 | Anesthesiology Progress Note ---
Date of Service October 11, 2022 Anesthesia Post Procedure Vital Signs Vital Signs: Temp Pulse Resp BP Pulse Ox O2 Del Method 10/11/22 10:04 93 H 16 122/72 98 Room Air 10/11/22 09:51 96 H 16 124/75 98 Room Air 10/11/22 09:36 102 H 16 107/66 98 Room Air 10/11/22 08:11 36.5 C 94 H 16 121/69 95 Room Air 10/11/22 07:17 37.1 C 98 H 18 118/75 95 Room Air 10/10/22 23:34 36.8 C 94 H 18 134/82 98 Room Air 10/10/22 21:02 37.9 C H 99 H 20 116/69 96 Room Air 10/10/22 19:29 38.1 C H 109 H 16 130/86 97 Room Air 10/10/22 15:39 36.9 C 98 H 18 118/54 L 96 Room Air 10/10/22 11:18 101 H 95 Room Air Pain Intensity Abdomen: Pain Intensity: 7 Left Upper Abdomen: Pain Intensity: 7 Transfer of Care Handoff Completed per policy Notes Mental Status: alert / awake / arousable and participated in evaluation Patient Amnestic to Procedure: Yes Nausea / Vomiting: adequately controlled Pain: adequately controlled Airway Patency, RR, SpO2: stable & adequate BP & HR: stable & adequate Hydration State: stable & adequate Anesthetic Complications: no major complications apparent and Pt Satisfied with anesthetic care
--- NOTE | 2022-10-11 10:50 | Hospitalist Progress Note ---
Date of Service October 11, 2022 Assessment & Plan (1) Diarrhea: Plan: Acute/unstable - low risk - Patient with heme positive diarrheal stools up to 20-30x per day x 7 days - Also with nausea and vomiting - Clinical picture not c/w food poisoning, GI consulted, appreciate assistance - Underwent EGD/[place] this AM, no gross abnormalities noted, biopsies taken - Will resume full liquid diet, advance to low residue for dinner if tolerates - Continue PPI and Famotidine - Cap IVF - Could consider addition of ?bentyl for spasms/cramps (2) Hypomagnesemia: Plan: Acute/unstable - low to mod risk - Magnesium level reviewed this AM, low at 1.5 - Replacement ordered with Mag Riders 1g IV x 2 doses - Repeat level in AM ordered (3) Bipolar 1 disorder, depressed: Plan: Chronic/stable - Does not appear to be on any medications specifically for this - Follow up as outpatient (4) Hyperthyroidism: Plan: with autoimmune thyroiditis - chronic/unstable - TSH <0.010 and FT4 4.10 - Previously on methimazole ~1.5 years ago, attempted trial off of it, but resumed again 2-3 weeks ago. - Would defer further dose adjustment at present, repeat outpatient TFTs in 3-4 weeks and would adjust dose at that time (5) Inflammatory polyarthropathy: Plan: Inflammatory polyarthropathy/ankylosing spondylitis - chronic/stable - On Humira as outpatient Admission and Anticipated Discharge Date Admission Date: October 10, 2022 Subjective Patient seen on daily rounds today. He underwent EGD/[place] this AM with Dr. Crisostomo. Asking for diet. No abd pain, n/v. Physical Exam Physical Exam: GENERAL: 42 yo wd thin WM. AAOx4. NAD. LUNGS: Clear to auscultation bilaterally w/o W/R/R. CARDIOVASCULAR: Regular rate and rhythm ABDOMEN: Soft, non-tender and non-distended. No palpable masses. Bowel sounds normoactive x 4 quad. Results & Data Results & Data Vital Signs (Past 12 Hours) Vital Signs Temp Pulse Resp BP Pulse Ox O2 Del Method 10/11/22 10:04 93 H 16 122/72 98 Room Air 10/11/22 09:51 96 H 16 124/75 98 Room Air 10/11/22 09:36 102 H 16 107/66 98 Room Air 10/11/22 08:11 36.5 C 94 H 16 121/69 95 Room Air 10/11/22 07:17 37.1 C 98 H 18 118/75 95 Room Air 10/10/22 23:34 36.8 C 94 H 18 134/82 98 Room Air Laboratory Results 10/11/22 06:48 10/11/22 06:48 Mag=1.5 PG Care Time/CCT Total # of Minutes Spent Total Time Spent with Patient: Total time spent is greater than 50% in coordination of care (as documented) at patient's floor/unit and/or counseling patient: Coding Diagnoses Diarrhea R19.7 Hypomagnesemia E83.42 Bipolar 1 disorder, depressed F31.9 Hyperthyroidism E05.90 Inflammatory polyarthropathy M06.4
[2022-10-11] MEDS ORDERED: DICYCLOMINE HCL 10 MG CAP PO PRN (11:05)
--- NOTE | 2022-10-11 11:15 | Discharge Summary ---
Date of Service October 11, 2022 Admission HPI Per Admitting Provider The patient is a 42-year-old male with a past medical history including ankylosing spondylitis, patellofemoral syndrome, bipolar 1 disorder, scoliosis, hyperparathyroidism, left BKA, autoimmune thyroiditis, inflammatory polyarthropathy. He reports that about 1 hour after eating chicken salad sandwich he developed severe nausea, vomiting and diarrhea. Diarrhea has become darker over the past few days. Stool PCR test in the ED was negative. Principal Diagnosis Diarrhea hypomagnesemia - treated hypokalemia - resolved hyperthyroidism Discharge Exam GENERAL: 42 yo wd thin WM. AAOx4. NAD. LUNGS: Clear to auscultation bilaterally w/o W/R/R. CARDIOVASCULAR: Regular rate and rhythm ABDOMEN: Soft, mild diffuse tenderness and non-distended. Bowel sounds normoactive x 4 quad. Discharge Data Allergies Allergy/AdvReac Type Severity Reaction Status Date / Time methadone AdvReac Intermediate PT STATES Verified 10/11/22 08:35 "IT MAKES ME VERY SICK" Consultations 10/09/22 23:05 ED Decision to Admit Stat 10/10/22 10:12 Consult Gastroenterology Routine Procedures Performed Operation Date: 10/11/22 16:45 Actual Procedures p EGD Biopsy Cytology - Charly Crisostomo MD s Colonoscopy Biopsy Cytology - Charly Crisostomo MD Ordered Studies Chest X-Ray 10/09/22 18:53 XR chest 1V portable CLINICAL HISTORY: cp, vomiting TECHNIQUE: Single frontal radiograph of the chest was obtained. Comparison: None available at the time of this dictation. FINDINGS: No lines and tubes are seen. The cardiomediastinal silhouette is normal. The lungs are clear. No evidence of pleural effusion or pneumothorax. IMPRESSION: No acute chest disease. ACT 112: Negative or not required by law. Electronically signed by: Kannan Swenson M.D. 10/09/2022 7:43 PM Abdomen/Pelvis CT 10/09/22 23:15 Exam(s): CT ABDOMEN + PELVIS With Contrast IV Amt: 89 ML OPTIRAY 320 EXAM: CT Abdomen and Pelvis With Intravenous Contrast CLINICAL HISTORY: Reason for exam: n/v, bloody stool. TECHNIQUE: Axial computed tomography images of the abdomen and pelvis with intravenous contrast. Automated exposure control was utilized for the study. A dose lowering technique was utilized adhering to the principles of ALARA. CONTRAST: Patient received 89 ML OPTIRAY 320 of IV contrast COMPARISON: No relevant prior studies available. FINDINGS: Lung bases: Unremarkable. No mass. No consolidation. ABDOMEN: Liver: Unremarkable. No mass. Gallbladder and bile ducts: Unremarkable. No calcified stones. No ductal dilation. Pancreas: Unremarkable. No mass. No ductal dilation. Spleen: Unremarkable. No splenomegaly. Adrenals: Unremarkable. No mass. Kidneys and ureters: Unremarkable. No solid mass. No hydronephrosis. Stomach and bowel: Unremarkable. No obstruction. No mucosal thickening. PELVIS: Appendix: No findings to suggest acute appendicitis. Bladder: Unremarkable. No mass. Reproductive: Unremarkable as visualized. ABDOMEN and PELVIS: Intraperitoneal space: Unremarkable. No free air. No significant fluid collection. Bones/joints: No acute fracture. No dislocation. Soft tissues: Unremarkable. Vasculature: Unremarkable. No abdominal aortic aneurysm. Lymph nodes: Unremarkable. No enlarged lymph nodes. IMPRESSION: Normal abdomen and pelvis CT. Electronically signed by: Flash Graves MD 10/10/22 00:41 AM Hospital Course (1) Diarrhea: Acute/unstable - low risk - Patient with heme positive diarrheal stools up to 20-30x per day x 7 days - Also with nausea and vomiting - Clinical picture not c/w food poisoning, GI consulted, appreciate assistance - Underwent EGD/[place] this AM, no gross abnormalities noted, biopsies taken - Ordered a low residue diet for lunch, if tolerates will plan for d/c - Continue Famotidine upon d/c - Cap IVF - Will add Bentyl 10mg TID prn spasms/cramps, rx provided (2) Hypomagnesemia: Acute/unstable - low to mod risk - Magnesium level reviewed this AM, low at 1.5 - Replacement ordered with Mag Riders 1g IV x 2 doses - Start on oral supplementation with slow mag, rx sent (3) Bipolar 1 disorder, depressed: Chronic/stable - Continue Gapabentin - Follow up as outpatient (4) Hyperthyroidism: with autoimmune thyroiditis - chronic/unstable - TSH <0.010 and FT4 4.10 - Previously on methimazole ~1.5 years ago, attempted trial off of it, but resumed again 2-3 weeks ago. - Would defer further dose adjustment at present, repeat outpatient TFTs in 3-4 weeks and would adjust dose at that time (5) Inflammatory polyarthropathy: Inflammatory polyarthropathy/ankylosing spondylitis - chronic/stable - On Humira as outpatient Plan Patient is medically stable for discharge home today if tolerates diet for lunch. Recommend close f/u with GI (they indicated they will schedule him for office follow up) for review of biopsies. Follow up with PCP within 1 week. Plan has been d/w Dr. Bolanos who is in agreement with aforementioned. Total Time Total Time Spent Total Time Spent (In Minutes): 35 minutes Discharge Plan Discharge Items Patient Disposition: Home - Self-Care Reason For Visit: INTRACTABLE N/V/DIARRHEA Discharge Diagnosis: diarrhea bloody stool Activity: Resume your previous activity Non-emergency contact: Primary Care Provider and [employer] Call non-emergency contact if: you have any medication questions and your symptoms worsen Follow-up/Referrals: Brittny Singer, [Primary Care Provider] - Diet: Low Fiber Addtl Attending Provider Instructions: You were hospitalized with nausea, vomiting, and diarrhea as well as blood in your stool. You were taken for an upper and lower scope of your GI tract to look for any causes. Biopsies were taken and you will need to follow up with Dr. Crisostomo's office for the results. You will be sent home on a medication called Bentyl, which can be taken up to three times per day to help with abdominal cramping/spasms. You are also being started on Magnesium supplementation as your mag level was low in the hospital. Please take as directed. You can also increase the amount of dietary magnesium you take in by eating more beans, whole grains, and oats. It is recommended that you follow up with your family doctor within 1 week of discharge or sooner if needed. Your thyroid tests were abnormal and you are going to need repeat thyroid levels in about 3 weeks. If you have any questions or concerns after you leave the hospital, you can call the nonemergency number listed on your discharge paperwork. In the event of a medical emergency, call 911. Pending Studies at Discharge: Yes Studies:: egd/colonoscopy biopsies Stand-Alone Forms: My [employer], Smoking Cessation Medications and DC Order Prescriptions: New famotidine 20 mg Tablet 20 mg PO BID Qty: 60 0RF dicyclomine 10 mg capsule 10 mg PO TID PRN (Reason: abdominal pain) Qty: 30 0RF Slow-Mag 71.5 mg tablet,delayed release (DR/EC) 71.5 mg PO DAILY Qty: 30 0RF Continued gabapentin 300 mg capsule 300 mg PO QID Qty: 120 0RF folic acid 1 mg Tablet 1 mg PO DAILY Humira Pen 40 mg/0.8 mL pen injector kit 40 mg SUBCUT USEASDIRECTD methimazole 10 mg Tablet 30 mg PO DAILY Discharge Orders: Discharge Order (Routine); Ordered 10/11/22 Ordered By: Genevieve Thompson Admission Data Admit Date/Time: 10/10/22 00:57 Attending Provider: John Bolanos Admit Provider: Jose Funk Primary Care Provider: Brittny Singer Other Providers: Jose Funk ; Charly Crisostomo Other Interventions: Discharge Summary Assessment (RN) Last Done: 10/11/22 09:53 Coding Level of Care Code 92948 INP/OBS DISCH >30 MIN Diagnoses Diarrhea R19.7 Hypomagnesemia E83.42 Bipolar 1 disorder, depressed F31.9 Hyperthyroidism E05.90 Inflammatory polyarthropathy M06.4
[2022-10-11] MEDS ORDERED: FAMOTIDINE 20 MG TAB PO SCH (21:00)
[2022-10-11] MEDS ORDERED: PANTOprazole 40 MG TAB PO SCH (21:00)
== END 2022-10-11 15:03 | disposition home or self-care (01) | DRG 392 ==
LOC: ED 17:59 → 3W 10-10 00:57 → SUATTDRO 10-10 00:57 → 3W 10-10 04:08